=== PATIENT | male | born 1955 | race African-American/Black ===

== ENCOUNTER → 2017-11-26 11:02 | Outpatient (CLI) | payer OTHER, SELFPAY ==
[2017-11-26 11:23] VITALS: PULSE 67; PULSE 79; PULSE 80; PULSE 81; O2SAT 91; O2SAT 92; O2SAT 93; O2SAT 94; O2SAT 96
[2017-11-26] MEDS: Zolpidem Tartrate 5 MG Tablet PO (21:25)
--- NOTE | 2017-11-27 07:03 | WT_ITS ---
PSN 6 Minute Walk Test - 6 Minute Walk Test 6 Minute Walk Test: 6 Minute Walk Test PSN:6-Minute Walk Test Start: 11/26/17 11: 23 Freq: Status: Active Protocol: [id number] Document 11/26/17 11:23 RUT (Rec: 11/26/17 11:25 RUT [id number]) 6 Minute Walk Test Date Performed 11/26/17 Time Performed 11:10 Height 5 ft 8 in Weight: 75.75 kg Weight in Pounds 167.[address]: Anthony Quinn Assistive device used: None Pre-test Oxygen Delivery Method Room Air Pulse Ox (%) 96 Pulse Rate (60-100 beats/min) 67 Dyspnea López Scale (0-10) 0 Exertion López Scale (6-20) 6 1st minute Oxygen Delivery Method Room Air Pulse Ox (%) 93 Pulse Rate (60-100 beats/min) 79 2nd minute Oxygen Delivery Method Room Air Pulse Ox (%) 92 Pulse Rate (60-100 beats/min) 79 3rd minute Oxygen Delivery Method Room Air Pulse Ox (%) 91 Pulse Rate (60-100 beats/min) 81 4th minute Oxygen Delivery Method Room Air Pulse Ox (%) 91 Pulse Rate (60-100 beats/min) 80 5th minute Oxygen Delivery Method Room Air Pulse Ox (%) 93 Pulse Rate (60-100 beats/min) 80 6th minute Oxygen Delivery Method Room Air Pulse Ox (%) 92 Pulse Rate (60-100 beats/min) 80 Dyspnea López Scale (0-10) 2 Exertion López Scale (6-20) 12 Post-test Oxygen Delivery Method Room Air Pulse Ox (%) 94 Pulse Rate (60-100 beats/min) 67 Full Laps Walked 16 Partial Lap, Number of Tiles Walked 62 Total Distance Walked (ft) 1006 - Interpretation Interpretation: The patient was able to ambulate 1006 feet over the course of 6 minutes on room air with no assistive devices or breaks. The patient did experience significant desaturation from a baseline of 96% to as low as 91% with ambulation. No significant tachycardia was noted. These findings are consistent with a respiratory limitation exercise tolerance. - Recommendations Recommendations: No supplemental oxygen is indicated at this time. However, patient will need to be followed closely given level of desaturation.
== END ==
LOC: PSN 11:02
PROVIDERS: Family Provider Physician Assistant; PCP Physician Assistant; Visit Provider Nurse Practitioner Acute Care
DX: G47.33 Obstructive sleep apnea (adult) (pediatric) (principal); R06.02 Shortness of breath
CPT/HCPCS: 94618; 95810

== ENCOUNTER → 2017-12-21 13:24 | Outpatient (CLI) | payer OTHER, SELFPAY ==
--- NOTE | 2017-12-22 05:39 | PFTCOMP ---
COMPLETE PULMONARY FUNCTION TEST INTERPRETATION Brief HPI: Patient is a 62 year old Black male, currently under the care of Dr. Quinn, who presents to [facility] for complete pulmonary function tests secondary to diagnosis of dyspnea. Respiratory therapist reports good effort and reproducible results. Interpretation: Forced expiration spirometry shows a very severe large airways obstructive ventilatory defect with an FEV1 of 34% predicted. There is no significant bronchodilator response by ATS criteria. Spirograms are of good quality and plateau slowly, indicating slowly emptying areas of the lungs. The respiratory flow volume loop shows decreased expiratory flow rates at all lung volumes consistent with airway obstruction. Lung volumes by body plethysmography show a normal total lung capacity at 6.45 L, 104% predicted. FRC and RV are elevated out of proportion. Lung volume measurements are consistent with air-trapping. Diffusion capacity by carbon monoxide is decreased at 28% predicted. The airway resistance is elevated. Compared to previous pulmonary function tests from 04/04/2012, there has been a significant improvement in spirometric findings. Impression: Irreversible very severe large airways obstructive ventilatory defect with a symmetric reduction diffusing capacity, resulting in air trapping and consistent with a diagnosis of advanced COPD. There has been some improvement in flows compared to 2011.
--- NOTE | 2017-12-22 05:42 | PFTCOMP_ITS ---
COMPLETE PULMONARY FUNCTION TEST INTERPRETATION Brief HPI: Patient is a 62 year old Black male, currently under the care of Dr. Quinn, who presents to [facility] for complete pulmonary function tests secondary to diagnosis of dyspnea. Respiratory therapist reports good effort and reproducible results. Interpretation: Forced expiration spirometry shows a very severe large airways obstructive ventilatory defect with an FEV1 of 34% predicted. There is no significant bronchodilator response by ATS criteria. Spirograms are of good quality and plateau slowly, indicating slowly emptying areas of the lungs. The respiratory flow volume loop shows decreased expiratory flow rates at all lung volumes consistent with airway obstruction. Lung volumes by body plethysmography show a normal total lung capacity at 6.45 L , 104% predicted. FRC and RV are elevated out of proportion. Lung volume measurements are consistent with air-trapping. Diffusion capacity by carbon monoxide is decreased at 28% predicted. The airway resistance is elevated. Compared to previous pulmonary function tests from 04/04/2012, there has been a significant improvement in spirometric findings. Impression: Irreversible very severe large airways obstructive ventilatory defect with a symmetric reduction diffusing capacity, resulting in air trapping and consistent with a diagnosis of advanced COPD. There has been some improvement in flows compared to 2011.
== END ==
LOC: PSN 13:25
PROVIDERS: Family Provider Physician Assistant; PCP Physician Assistant; Visit Provider Nurse Practitioner Acute Care
DX: R06.02 Shortness of breath (principal)
CPT/HCPCS: 94060; 94726; 94729

== ENCOUNTER → 2017-12-24 20:00 | Outpatient (CLI) | payer OTHER, SELFPAY ==
[2017-12-24] MEDS: Zolpidem Tartrate 5 MG Tablet PO (21:30)
== END ==
PROVIDERS: Family Provider Physician Assistant; PCP Physician Assistant; Visit Provider Nurse Practitioner Acute Care
DX: G47.33 Obstructive sleep apnea (adult) (pediatric) (principal)
CPT/HCPCS: 95811

== ENCOUNTER 2018-08-24 20:43 | Observation (INO) | payer BC, SELFPAY ==
[2018-08-24 21:04] VITALS: PULSE 60
[2018-08-24 21:15] VITALS: BP 114/84; PULSE 61; RESP 16; TEMP 36.7; O2SAT 96
[2018-08-24 21:22] VITALS: BMI 24.7
[2018-08-24 21:27] VITALS: BMI 24.7
--- NOTE | 2018-08-24 21:56 | PCM.HP.STD ---
Problem List (1) Pure hypercholesterolemia Status: Chronic (2) Essential (primary) hypertension Status: Chronic (3) Atherosclerosis of [place] coronary artery of [place] heart without angina pectoris Status: Chronic Comment: IVUS-PTCA/ESTEPHANIA to LAD 12/22/15 (4) Stage 4 very severe COPD by GOLD classification Status: Chronic Comment: FEV1 32% of predicted (5) SANDRA (obstructive sleep apnea) Status: Chronic Comment: Nasal CPAP 15 cm water History of Present Illness Date of Admission: 08/24/18 Chief Complaint: Chest pain. The patient is a 62 year old M with past medical history as mentioned above directly admitted from outside facility for atypical chest pain for evaluation. Patient symptoms started around 7 days ago with intermittent chest pain, started on the back of the left side of his chest, sharp shooting pain, intermittent, 5 out of 10 in severity, comes on all of a sudden, has been going on for 7 days, aggravated by exposure to cold weather, associated with mild shortness of breath and without relieving factors. He mentioned that he went to the hospital today because his chest has been getting more severe and more prolonged. He denied associated nausea, vomiting, sweating, dizziness or lightheadedness. He denied cough or sputum production. He denies fever or chills. At this time, his vital signs are stable. His routine blood work from the outside facility reviewed and was unremarkable. His EKG revealed sinus bradycardia, heart rate has been around 58, no acute ischemic changes. His d-dimer was normal. Troponin was negative. He is being admitted for atypical chest pain for evaluation. Past Medical History Past Medical History (Chronic Problems): Chronic Problems (Last Updated 05/25/18 @ 08:13 by Kevin Alvarez NP-C) Pure hypercholesterolemia (Chronic) Essential (primary) hypertension (Chronic) Atherosclerosis of [place] coronary artery of [place] heart without angina pectoris (Chronic) IVUS-PTCA/ESTEPHANIA to LAD 12/22/15 Stage 4 very severe COPD by GOLD classification (Chronic) FEV1 32% of predicted SANDRA (obstructive sleep apnea) (Chronic) Nasal CPAP [address] elevation (STEMI) myocardial infarction involving left anterior descending coronary artery (Chronic) Long-term current use of high risk medication other than anticoagulant (Chronic) Stented coronary artery (Chronic ~12/22/15) IVUS-PTCA/ESTEPHANIA to LAD 12/22/15 Continuous tobacco abuse (Chronic) BMI 25.0-25.9,adult (Chronic) Medical History: Medical History (Last Updated 05/25/18 @ 08:13 by BRE SweeneyC) Pure hypercholesterolemia (Chronic) E78.00 Essential (primary) hypertension (Chronic) I10 Atherosclerosis of [place] coronary artery of [place] heart without angina pectoris (Chronic) I25.10 IVUS-PTCA/ESTEPHANIA to LAD 12/22/15 Stage 4 very severe COPD by GOLD classification (Chronic) J44.9 FEV1 32% of predicted SANDRA (obstructive sleep apnea) (Chronic) G47.33 Nasal CPAP [address] elevation (STEMI) myocardial infarction involving left anterior descending coronary artery (Chronic) I21.02 BMI 25.0-25.9,adult (Chronic) Z68.25 Allergies ceftriaxone sodium [From Rocephin] Adverse Reaction (Severe, Verified 05/25/18 08:24) Other Home Medications: Ambulatory Orders Medication Instructions Recorded Acetaminophen [Tylenol] 650 mg PO Q6H PRN PRN 01/29/16 albuterol sulfate HFA 90 2 puff INHALATION Q4H PRN #18 g 08/02/17 mcg/actuation aerosol inhaler clopidogrel 75 mg tablet 75 mg PO DAILY #90 tab 09/16/17 lisinopril 20 1 tab PO DAILY #90 tab 09/16/17 mg-hydrochlorothiazide 25 mg tablet metoprolol succinate ER 50 mg 50 mg PO DAILY #90 tab 09/16/17 tablet,extended release 24 hr aspirin 81 mg chewable tablet 81 mg PO DAILY@0800 #90 tab 09/27/17 fluticasone 100 mcg-umeclid 62.5 1 inh INHALATION QDAY #1 device 02/09/18 mcg-vilant 25 mcg powd for inhalation amlodipine 5 mg tablet 5 mg PO DAILY #90 tab 04/11/18 atorvastatin 80 mg tablet 80 mg PO QHS #90 tab 04/11/18 nitroglycerin 0.4 mg sublingual 0.4 mg SUBLINGUAL Q5M PRN #25 tab 05/25/18 tablet Nicotine [Nicoderm Cq] 1 patch TRANSDERMAL ONCE PRN 08/24/18 Surgical History: Surgical History (Last Updated 08/24/18 @ 21:54 by Zuleika Salas MD) Stented coronary artery (Chronic) Onset Date: ~12/22/15 Z95.5 IVUS-PTCA/ESTEPHANIA to LAD 12/22/15 Surgical History: - - PCI, cardiac stents. Psychiatric History: No pertinent psych hx Lives: Spouse/ Significant Other Smoking Status: Light Smoker (<10/day) Tobacco Use: Cigarettes Alcohol: None Drugs: None - *Family History Maternal Family History: Family History (Last Reviewed 05/25/18 @ 08:25 by Jelena Rodríguez) Father Diabetes Mother Diabetes History Items: No pertinent history Paternal Family History: Family History (Last Reviewed 05/25/18 @ 08:25 by Jelena Rodríguez) Father Diabetes Mother Diabetes History Items: Hypertension Sibling Family History: Family History (Last Reviewed 05/25/18 @ 08:25 by Jelena Rodríguez) Father Diabetes Mother Diabetes History Items: Hypertension Review of Systems Constitutional: Denies: Anorexia, Chills, Fever, Weakness Eyes: Denies: Blurred vision, Double vision, Drainage, Redness HEENT: Denies: Difficulty Hearing, Ear Pain, Eye Pain, Nasal Congestion, Sore Throat Cardiovascular: Reports: Chest Pain. Denies: Chest Pressure, Edema, Heaviness, Palpitations, Syncope Respiratory: Reports: Pleuritic Pain, Shortness of Breath. Denies: Cough, Hemoptysis, Sputum production, Wheezing Gastrointestinal: Denies: Abdominal Pain, Constipation, Diarrhea, Nausea, Vomiting Genitourinary: Denies: Dysuria, Frequency, Hematuria Musculoskeletal: Denies: Arm Pain, Back Pain, Foot Pain Skin: Denies: Dryness, Rash Neurological: Denies: Balance problems, Double vision, Change in Speech, Slurred speech, Confusion, Headaches, Incoordination, Numbness Psychiatric: Denies: Anxiety, Depression Endocrine: Denies: Change in Body Habitus, Polydipsia VTE Information - Inpt Only VTE Present on Admission: No VTE Mechan Device Prophylaxis: None VTE Pharm Prophylaxis ordered?: Yes - Physical Exam General: Alert, Oriented x3, Cooperative, No apparent distress HEENT: Atraumatic, PERRLA, EOMI, Normocephalic Oral: Moist Mucosa, No Gingival or Mucosal Lesions/ Ulcerations Neck: Supple, No JVD, Negative Carotid Bruits, Trachea Midline, Thyroid Normal Size and Texture Lungs: Clear to auscultation, No rhonchi, No wheeze, No rales, Diminished Cardiovascular: Regular rate, Regular Rhythm, Normal S1, Normal S2, No murmurs, PMI Normal Abdomen: Bowel Sounds Present, Soft, Non Tender, Non-Distended, No Hepato-splenomegaly Extremities: No clubbing, No cyanosis, No edema Skin: No rashes, No breakdown Lymphatic: No Cervical, Supraclavicular, or Inguinal Adenopathy Neurological: Cranial nerves II-XII grossly intact, Motor Exam 5/5 strength throughout Psych/Mental Status: Normal Affect, Appropriate, Alert and oriented to time, place, person, mood and affect Vital Signs Temp Pulse Resp BP Pulse Ox 98.0 F 61 16 114/84 H 96 08/24/18 21:15 08/24/18 21:15 08/24/18 21:15 08/24/18 21:15 08/24/18 21:15 Oxygen Delivery Method Room Air Weight: 162 lb 7.691 oz Body Mass Index (BMI) 24.7 Laboratory Tests Past 24 Hrs 08/24/18 21:50 Troponin I Pending Laboratory data: Blood work from the outside facility reviewed as below. CBC: Hemoglobin 15.1, WBC 7.2, platelet count 291,000. BMP: Sodium 141, potassium 3.8, chloride 104, CO2 30, BUN 20, creatinine 1.25, glucose 95. Troponin less than 0.02. BNP 45. D-dimer 206 (0-230). EKG revealed sinus bradycardia, heart rate has been in the high 50s, no acute ischemic changes or cardiac arrhythmias. Assessment/Plan This is a 63 years old male patient directly admitted from outside facility for atypical chest pain for evaluation. #1 atypical chest pain: The pain has been going on for almost 1 week, starts on the left lateral chest, associated with shortness of breath, intermittent. EKG revealed sinus bradycardia without evidence of acute ischemic changes. Troponin is negative. Patient had cardiac catheterization on February, that revealed angiographically normal left main coronary artery, patent stent to mid LAD, moderate luminal irregularities of the distal LAD, angiographically normal left circumflex and RCA. Plan: Admit to PCU for observation, cardiac monitoring, serial cardiac enzymes, repeat EKG tomorrow morning, repeat CBC and BMP,, will do chest x-ray, nuclear stress test tomorrow morning if cardiac enzymes are negative. #2 CAD status post stents: Stable, cardiac catheterization on February, reviewed as above. Plan as above, continue aspirin, statins, Plavix, lisinopril and metoprolol. #3 hypertension: Blood pressure stable, continue Norvasc, metoprolol and lisinopril as well as HCTZ. #4 hyperlipidemia: Continue statins. #5 COPD: Clinically stable, pulse ox is maintained on room air. Start DuoNeb every 6 hours, albuterol as needed. #6 DVT prophylaxis: Subcu Lovenox. This note was generated with [employer] dictation software. It may contain incorrect words, spelling, and punctuation that were not noted in checking the note before signing. Code Visit OBSV E&M: 26383 Initial observation care L3
--- NOTE | 2018-08-24 22:30 | RAD_ITS ---
STUDY: X-RAY CHEST REASON FOR EXAM: Male, 62 years old. Chest pain TECHNIQUE: PA and lateral views of the chest. COMPARISON: 03/09/2017 FINDINGS: There are superimposed monitor leads. There is hyperinflation of the lungs consistent with chronic obstructive lung disease (COPD). Stable tethering of the diaphragm right lateral base. There is no demonstrated pleural abnormality. Normal size heart. Normal mediastinum and nadia. Normal visualized pulmonary arteries. Normal visualized aortic arch and descending thoracic aorta. Normal visualized thoracic spine. Normal visualized ribs, clavicles, and shoulders. There is no demonstrated abnormality of the visualized soft tissue structures of the upper abdomen. RAD/Chest PA and Lateral IMPRESSION: Stable COPD and scarring along the right diaphragm. No pulmonary edema, congestive heart failure or confluent pneumonia. Electronically Signed: Marian Ferreira MD at 23:07 EST , Service support ,
[2018-08-24 22:59] VITALS: PULSE 61
[2018-08-24] MEDS: 0.9% Normal Saline 1,000 ML 75 ML IV (23:30)
[2018-08-24] MEDS: 0.9% NaCl Peripheral Flush Adult/Peds IV (23:32)
[2018-08-24] MEDS: Clopidogrel Bisulfate 75 MG Tablet PO (23:36)
[2018-08-24] MEDS: Atorvastatin Calcium 80 MG Tablet PO (23:36)
[2018-08-24] MEDS: Lisinopril 20 MG Tablet PO (23:37)
[2018-08-24] MEDS: hydroCHLOROthiazide 25 MG Tablet PO (23:37)
[2018-08-24 23:38] VITALS: BP 107/77; PULSE 61
[2018-08-24] MEDS: Metoprolol(XL)Succ 50 MG Tablet PO (23:38)
[2018-08-24] MEDS: amLODIPine 5 MG Tablet PO (23:38)
[2018-08-24 23:40] VITALS: BP 107/77; PULSE 62; RESP 16; TEMP 36.9; O2SAT 95
[2018-08-25] VITALS (8 sets, daily range): BP systolic 97–114; BP diastolic 64–71; PULSE 53–71; RESP 16–19; TEMP 36.4–36.5; O2SAT 93–96
[2018-08-25 03:59] LABS: Hematocrit 42.6 % (40-54); Hemoglobin 14.6 g/dl (13.0-16.5); Mean Corp Hgb Conc 34.3 g/gl (32-36); Mean Corpuscular Hgb 30.2 pg (27.0-32.0); Mean Corpuscular Volume 88.2 fL (80-94); Mean Platelet Vol. 9.1 fl (6.2-12.0); Platelet Count 299 K/mm3 (150-450); RBC Distribution Width CV 12.8 % (11.6-14.6); RBC Distribution Width SD 40.7 fl (35.1-43.9); Red Blood Count 4.83 M/mm3 (4.6-6.2); White Blood Count 6.1 K/mm3 (4.4-11.0)
[2018-08-25 04:00] LABS: Scan Indicated on CBC? Y/N NO
[2018-08-25 04:03] LABS: International Normalized Ratio 1.1; Prothrombin Time (Protime)PT. 13.7 SECONDS (11.7-14.9)
[2018-08-25 04:04] LABS: Partial Thromboplast Time 26.7 Seconds (24.1-36.2)
[2018-08-25 04:37] LABS: Anion Gap 10 (5-15); BUN 18 mg/dL (7-18); BUN/Creat Ratio 17.5 RATIO (10-20); Calcium,Total 8.4 mg/dL (8.5-10.1); Chloride 105 mmol/L (98-107); Creatinine, Serum 1.03 mg/dL (0.70-1.30); EST Glomerular Filtration Rate 78 mL/min (>60); Est Glom Filt Rate - Afr Amer 94 mL/min (>60); Estimated Creatinine Clearance 73.79 ml/min; Glucose 101 mg/dL (74-106); Potassium 3.6 mmol/L (3.5-5.1); Sodium Level 142 mmol/L (136-145)
[2018-08-25] MEDS: Aspirin 81 MG TAB.CHEW PO (05:05)
--- NOTE | 2018-08-25 05:55 | EKG12_ITS ---
Test Reason : AM Blood Pressure : / mmHG Vent. Rate : 062 BPM Atrial Rate : 062 BPM P-R Int : 138 ms QRS Dur : 084 ms QT Int : 426 ms P-R-T Axes : 088 -36 063 degrees QTc Int : 432 ms Normal sinus rhythm Left axis deviation Abnormal ECG When compared with ECG of 24-AUG-2018 21:05, MANUAL COMPARISON REQUIRED, DATA IS UNCONFIRMED Confirmed by DONNA CHOWDARY, BRIAN ([id number]), video news editor ORI MAE ([id number]) on 08/30/2018 9:02:24 AM Referred By: Confirmed By:BRIAN THOMPSON MD
[2018-08-25] MEDS: 0.9% NaCl Peripheral Flush Adult/Peds IV (11:27)
--- NOTE | 2018-08-25 13:46 | STRESSREP_ITS ---
Stress Test Report Date: 08/25/2018 Procedure: Pharmacologic stress nuclear imaging study Indications: CAD; status post MD; status post PCI Consent: Per the patient Procedure: The patient underwent pharmacologic (regadenoson) evaluation with a peak heart rate of 93 beats per minute (58% predicted maximal heart rate) with a peak blood pressure 130/90 mmHg. The baseline ECG demonstrated sinus bradycardia. The peak pharmacological ECG demonstrated no obvious ECG changes. There were no obvious cardiac dysrhythmias pretest, during pharmacologic infusion, or recovery. There was no report of chest discomfort during pharmacologic infusion or recovery. The examination was discontinued secondary to completion of protocol. Impression: 1. Pharmacologic (regadenoson) evaluation 2. Peak pharmacologic ECG with no obvious ECG changes 3. There were no obvious cardiac dysrhythmias pretest, during pharmacologic infusion, recovering 4. Nuclear images pending Myocardial perfusion imaging study: Technique: The patient was injected with 11.6 mci of technetium 99 M Cardiolite and subsequently rest SPECT Cardiolite nuclear imaging was obtained in the ho rizontal long, vertical long, and short axis views. The patient underwent pharmacologic (regadenoson) evaluation with a peak heart rate of 93 beats per minute (58% predicted maximal heart rate) with a peak blood pressure 130/90 mmHg. The patient was injected with 35.1 mci of technetium 99 M Cardiolite and subsequently stress SPECT Cardiolite nuclear imaging was obtained in the horizontal long, vertical long, and short axis views. A gated Cardiolite study at peak stress was obtained. Interpretation: Rest and stress SPECT Cardiolite nuclear imaging demonstrates the appearance of extra cardiac/gastrointestinal tracer uptake near the inferior segments. Otherwise there appears to be relative uniform tracer uptake and myocardial perfusion appearing within normal limits. There is end systolic thickening and brightening. The gated Cardiolite study demonstrates myocardial thickening and normal motion. The reported LVEF is 72%. Impression 1. Rest and stress SPECT Cardiolite nuclear imaging demonstrate relative uniform tracer uptake and myocardial perfusion appearing within normal limits. 2. The gated Cardiolite study reports an LVEF of 72%. This note was generated using a voice recognition system and there may be incorrect words, spelling or punctuation that were not noted when reviewing the office note prior to saving.
--- NOTE | 2018-08-25 14:16 | PCM.DC ---
You will use the following diet at home:: Cardiac Your food should be the consistency of: Regular Your liquids should be the consistency of: Regular/Thin Discharge Activity: Return to Normal Activity, - - Avoid exposure to any strong smells such as bleach, cleaning products, strong colognes or perfumes, paint fumes and smoke of any kind. Avoid sudden exposure to cold air because this can cause bronchospasm. You may want to cover your mouth when you go outside in the winter. Avoid exposure to anyone who is sick with a cough or sore throat. May resume sexual activity in: No Restrictions Call your doctor if you observe: Fever of 101 or Higher, Shortness of breath, Dizziness, Fainting spells, Swelling in the ankles, Uncontrolled pain Instructions: Your Body's Response to Anxiety, Understanding Panic Disorder (Panic Attack), Treating Anxiety Disorders with Therapy, Coping with Shortness of Breath: Controlling Stress, Chronic Lung Disease: Tips for Quitting Smoking, Why Do You Smoke?, Planning to Quit Smoking, Getting Support for Quitting Smoking Additional Instructions: 1. The stress test was negative.....this means that there is no changes on the films that would be consistent with cardiac disease. The heart squeezes well. Chest pain can also be associated with COPD, reflux, muscle spasm, musculoskeletal problems. I suggest possibly seeing a chiropracter for an adjustment or getting a massage or asking your PCP for a referral to physical therapy. Patients with severe chronic lung disease also get very anxious at times because they can't catch there breath and this is terrifying and can lead to muscles spasms and chest pain.......you can have a panic attack. You have severe lung disease and this greatly impacts your ability to walk and exert yourself. It is likely going to continue to get worse because you are still smoking. There is a smoking cessation program here at the hospital that is run by the respiratory therapists and all you need to do is call the hospital wooling machine operator and ask to be put through to the smoking cessation professional programmer analyst. When you are anxious and/or depressed it can be VERY difficult to quit any addiction.......I would discuss this with your PCP and ask ifd there is some medication that would help you. Allergies/Adverse Reactions: Allergies ceftriaxone sodium [From Rocephin] Adverse Reaction (Severe, Verified 05/25/18 08:24) Other Medications to take at Discharge Acetaminophen [Tylenol Tablet] 650 mg PO Q6H PRN PRN 01/29/16 albuterol sulfate HFA 90 mcg/actuation aerosol inhaler 2 puff INHALATION Q4H PRN #18 g 08/02/17 clopidogrel 75 mg tablet 75 mg PO DAILY #90 tab 09/16/17 lisinopril 20 mg-hydrochlorothiazide 25 mg tablet 1 tab PO DAILY #90 tab 09/16/17 metoprolol succinate ER 50 mg tablet,extended release 24 hr 50 mg PO DAILY #90 tab 09/16/17 aspirin 81 mg chewable tablet 81 mg PO DAILY@0800 #90 tab 09/27/17 fluticasone 100 mcg-umeclid 62.5 mcg-vilant 25 mcg powd for inhalation 1 inh INHALATION QDAY #1 device 02/09/18 amlodipine 5 mg tablet 5 mg PO DAILY #90 tab 04/11/18 atorvastatin 80 mg tablet 80 mg PO QHS #90 tab 04/11/18 nitroglycerin 0.4 mg sublingual tablet 0.4 mg SUBLINGUAL Q5M PRN #25 tab 05/25/18 Nicotine [Nicoderm Cq] 1 patch TRANSDERMAL ONCE PRN 08/24/18 Albuterol Aerosols [Ventolin Aerosols] 2.5 mg INHALATION Q4H PRN PRN #120 vial 08/25/18 The following prescriptions were given: Albuterol Aerosols [Ventolin Aerosols] 2.5 mg INHALATION Q4H PRN PRN #120 vial PRN Reason: wheezing/shortness of breath Primary Care Physician: Jon Bernal PA [Primary Care Provider] - Test Results: Test results from this visit will be discussed in further detail at your follow-up appointment, if applicable. Please Follow Up With: Johnny Acosta MD - or Dr. Quinn When: 2 weeks has an appt in August Please Follow Up With: Dimitris Tubbs MD When: [place] to establish care and follow up visit from the hospital Proposed Discharge Date: 08/25/18
--- NOTE | 2018-08-25 14:23 | DCINST_ITS ---
You will use the following diet at home:: Cardiac Your food should be the consistency of: Regular Your liquids should be the consistency of: Regular/Thin Discharge Activity: Return to Normal Activity, - - Avoid exposure to any strong smells such as bleach, cleaning products, strong colognes or perfumes, paint fumes and smoke of any kind. Avoid sudden exposure to cold air because this can cause bronchospasm. You may want to cover your mouth when you go outside in the winter. Avoid exposure to anyone who is sick with a cough or sore throat. May resume sexual activity in: No Restrictions Call your doctor if you observe: Fever of 101 or Higher, Shortness of breath, Dizziness, Fainting spells, Swelling in the ankles, Uncontrolled pain Instructions: Your Body's Response to Anxiety, Understanding Panic Disorder (Panic Attack), Treating Anxiety Disorders with Therapy, Coping with Shortness of Breath: Controlling Stress, Chronic Lung Disease: Tips for Quitting Smoking, Why Do You Smoke?, Planning to Quit Smoking, Getting Support for Quitting Smoking Additional Instructions: 1. The stress test was negative.....this means that there is no changes on the films that would be consistent with cardiac disease. The heart squeezes well. Chest pain can also be associated with COPD, reflux, muscle spasm, musculoskeletal problems. I suggest possibly seeing a chiropracter for an adjustment or getting a massage or asking your PCP for a referral to physical therapy. Patients with severe chronic lung disease also get very anxious at times because they can't catch there breath and this is terrifying and can lead to muscles spasms and chest pain.......you can have a panic attack. You have severe lung disease and this greatly impacts your ability to walk and exert yourself. It is likely going to continue to get worse because you are still smoking. There is a smoking cessation program here at the hospital that is run by the respiratory therapists and all you need to do is call the hospital chip crusher operator and ask to be put through to the smoking cessation program manufacturing leader. When you are anxious and/or depressed it can be VERY difficult to quit any addiction.......I would discuss this with your PCP and ask ifd there is some medication that would help you. Allergies/Adverse Reactions: Allergies ceftriaxone sodium [From Rocephin] Adverse Reaction (Severe, Verified 05/25/18 08:24) Other Medications to take at Discharge Acetaminophen [Tylenol Tablet] 650 mg PO Q6H PRN PRN 01/29/16 albuterol sulfate HFA 90 mcg/actuation aerosol inhaler 2 puff INHALATION Q4H PRN #18 g 08/02/17 clopidogrel 75 mg tablet 75 mg PO DAILY #90 tab 09/16/17 lisinopril 20 mg-hydrochlorothiazide 25 mg tablet 1 tab PO DAILY #90 tab 08/27 09/12 metoprolol succinate ER 50 mg tablet,extended release 24 hr 50 mg PO DAILY #90 tab 09/16/17 aspirin 81 mg chewable tablet 81 mg PO DAILY@0800 #90 tab 09/27/17 fluticasone 100 mcg-umeclid 62.5 mcg-vilant 25 mcg powd for inhalation 1 inh INHALATION QDAY #1 device 02/09/18 amlodipine 5 mg tablet 5 mg PO DAILY #90 tab 04/11/18 atorvastatin 80 mg tablet 80 mg PO QHS #90 tab 04/11/18 nitroglycerin 0.4 mg sublingual tablet 0.4 mg SUBLINGUAL Q5M PRN #25 tab 05/25/18 Nicotine [Nicoderm Cq] 1 patch TRANSDERMAL ONCE PRN 08/24/18 Albuterol Aerosols [Ventolin Aerosols] 2.5 mg INHALATION Q4H PRN PRN #120 vial 08/25/18 The following prescriptions were given: Albuterol Aerosols [Ventolin Aerosols] 2.5 mg INHALATION Q4H PRN PRN #120 vial PRN Reason: wheezing/shortness of breath Primary Care Physician: Jon Bernal PA [Primary Care Provider] - Test Results: Test results from this visit will be discussed in further detail at your follow- up appointment, if applicable. Please Follow Up With: Johnny Acosta MD - or Dr. Quinn When: 2 weeks has an appt in August Please Follow Up With: Dimitris Tubbs MD When: BOLIVAR to establish care and follow up visit from the hospital Proposed Discharge Date: 08/25/18
--- NOTE | 2018-08-25 15:20 | DS.PCM_ITS ---
Discharge Date and Diagnosis Date of Admission: 08/24/18 Date of Discharge: 08/25/18 - Primary Discharge Diagnosis Chest pain associated with ALVES - suspect secondary to severe COPD - Secondary Discharge Diagnosis Chronic Problems (Last Updated 05/25/18 @ 08:13 by Kevin Alvarez NP-C) Pure hypercholesterolemia (Chronic) Essential (primary) hypertension (Chronic) Atherosclerosis of [place] coronary artery of [place] heart without angina pectoris (Chronic) IVUS-PTCA/ESTEPHANIA to LAD 12/22/15 Stage 4 very severe COPD by GOLD classification (Chronic) FEV1 32% of predicted SANDRA (obstructive sleep apnea) (Chronic) Nasal CPAP [address] elevation (STEMI) myocardial infarction involving left anterior descending coronary artery (Chronic) Long-term current use of high risk medication other than anticoagulant (Chronic) Stented coronary artery (Chronic ~12/22/15) IVUS-PTCA/ESTEPHANIA to LAD 12/22/15 Continuous tobacco abuse (Chronic) BMI 25.0-25.9,adult (Chronic) Hospital Course and Treatment Imaging Results: Clinical Impression(s) from Imaging Studies Chest X-Ray 08/24/18 22:30 IMPRESSION: Stable COPD and scarring along the right diaphragm. No pulmonary edema, congestive heart failure or confluent pneumonia. Electronically Signed: Marian Ferreira MD at 23:07 EST , Service support , none Operations: None Procedures: Stress test - Impression 1. Rest and stress SPECT Cardiolite nuclear imaging demonstrate relative uniform tracer uptake and myocardial perfusion appearing within normal limits. 2. The gated Cardiolite study reports an LVEF of 72%. Summary of Care Provided: The patient is a 62 year old M with a past medical history of stage IV severe COPD, obstructive sleep apnea on CPAP, coronary artery disease, hypertension and hyperlipidemia who presented to the emergency department at [facility] on 08/24/2018 from an outside facility complaining of intermittent left side chest pain for the preceding 7 days. 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 and the pain was precipitated by working outside in this extreme cold and lifting/moving heavy objects. He admitted to increased SOB and wheezing with the pain. The pain was sharp and stabbing, He does not have oxygen at home. He has had a 6 minute walk with Pulmonary medicine and does not qualify for oxygen. Troponin at admission was WNL and a CXR showed no infiltrates, pleural effusions or pulmonary vascular congestion. Vital signs at presentation were temp 98, pulse rate 61, blood pressure 114/84, respiratory rate 16 and he was 96% saturated on room air at rest. He was admitted to a monitored bed on PCU and had no significant cardiac dysrhythmia. Serial troponins were negative and a stress test was done on 08/25/2018 and demonstrated relative uniform tracer uptake in myocardial perfusion appearing to be within normal limits. The gated Cardiolite study reported left ventricular ejection fraction of 72%. He was discharged home and will follow up with PCP and pulmonary as an OP. General: Alert, oriented ?3, cooperative, pleasant and appropriate Neck: Supple, trachea midline, no enlarged cervical nodes, no enlarged supraclavicular nodes Lungs: Clear to auscultation, no wheezes, no rales, fair air exchange, symmetric chest expansion, not tachypneic, no conversational dyspnea, no accessory muscle use Heart: Regular rate and rhythm, normal S1, normal S2, no murmur, no gallop, no rub Abdomen: Soft, NT, ND, bowel sounds present Extremities: No clubbing, no peripheral edema, no cyanosis This note was generated with Boxever dictation software. It may contain incorrect words, spelling, and punctuation that were not noted in checking the note before signing. - Physical Exam Vital Signs Temp Pulse Resp BP Pulse Ox 97.6 F L 60 17 108/71 95 08/25/18 14:13 08/25/18 14:13 08/25/18 14:13 08/25/18 14:13 08/25/18 14:13 Oxygen Delivery Method Room Air Weight: 162 lb 7.691 oz Body Mass Index (BMI) 24.7 Intake and Output for Last 24 Hours 08/23/18 08/24/18 08/25/18 23:59 23:59 23:59 Intake Total 240 / 240 711 / 711 Output Total 250 / 250 1125 / 1125 Balance -10 / -10 -414 / -414 Laboratory Tests Past 24 Hrs 08/24/18 08/25/18 08/25/18 21:50 00:08 03:44 WBC 6.1 RBC 4.83 Hgb 14.6 Hct 42.6 MCV 88.2 MCH 30.2 MCHC 34.3 RDW 12.8 RDW Differential 40.7 Plt Count 299 MPV 9.1 PT INR APTT Sodium Potassium Chloride Carbon Dioxide Anion Gap BUN Creatinine Estim Creat Clear Calc Est GFR (MDRD) Af Amer Est GFR (MDRD) Non-Af BUN/Creatinine Ratio Glucose Calcium Troponin I < 0.015 < 0.015 08/25/18 08/25/18 08/25/18 03:44 03:44 03:44 WBC RBC Hgb Hct MCV MCH MCHC RDW RDW Differential Plt Count MPV PT 13.7 INR 1.1 APTT 26.7 Sodium 142 Potassium 3.6 Chloride 105 Carbon Dioxide 27.0 Anion Gap 10 BUN 18 Creatinine 1.03 Estim Creat Clear Calc 73.79 Est GFR (MDRD) Af Amer 94 Est GFR (MDRD) Non-Af 78 BUN/Creatinine Ratio 17.5 Glucose 101 Calcium 8.4 L Troponin I < 0.015 Discharge Activity: Return to Normal Activity, - - Avoid exposure to any strong smells such as bleach, cleaning products, strong colognes or perfumes, paint fumes and smoke of any kind. Avoid sudden exposure to cold air because this can cause bronchospasm. You may want to cover your mouth when you go outside in the winter. Avoid exposure to anyone who is sick with a cough or sore throat. May resume sexual activity in: No Restrictions Call your doctor if you observe: Fever of 101 or Higher, Shortness of breath, Dizziness, Fainting spells, Swelling in the ankles, Uncontrolled pain Home Medications: Medications to take at Discharge Acetaminophen [Tylenol Tablet] 650 mg PO Q6H PRN PRN 01/29/16 albuterol sulfate HFA 90 mcg/actuation aerosol inhaler 2 puff INHALATION Q4H PRN #18 g 08/02/17 clopidogrel 75 mg tablet 75 mg PO DAILY #90 tab 09/16/17 lisinopril 20 mg-hydrochlorothiazide 25 mg tablet 1 tab PO DAILY #90 tab 09/16/17 metoprolol succinate ER 50 mg tablet,extended release 24 hr 50 mg PO DAILY #90 tab 09/16/17 aspirin 81 mg chewable tablet 81 mg PO DAILY@0800 #90 tab 09/27/17 fluticasone 100 mcg-umeclid 62.5 mcg-vilant 25 mcg powd for inhalation 1 inh INHALATION QDAY #1 device 02/09/18 amlodipine 5 mg tablet 5 mg PO DAILY #90 tab 04/11/18 atorvastatin 80 mg tablet 80 mg PO QHS #90 tab 04/11/18 nitroglycerin 0.4 mg sublingual tablet 0.4 mg SUBLINGUAL Q5M PRN #25 tab 05/25/18 Nicotine [Nicoderm Cq] 1 patch TRANSDERMAL ONCE PRN 08/24/18 Albuterol Aerosols [Ventolin Aerosols] 2.5 mg INHALATION Q4H PRN PRN #120 vial 08/25/18 Following Prescrptions Were Given to Patient: Albuterol Aerosols [Ventolin Aerosols] 2.5 mg INHALATION Q4H PRN PRN #120 vial PRN Reason: wheezing/shortness of breath Primary Care Physician: Jon Bernal PA [Primary Care Provider] - Please follow up with your Primary Care Physician in: 1 week Please Follow Up With: Johnny Acosta MD - or Dr. Quinn When: 2 weeks has an appt in August Please Follow Up With: Dimitris Tubbs MD When: BOLIVAR to establish care and follow up visit from the hospital Patient Instructions: Your Body's Response to Anxiety, Chronic Lung Disease: Tips for Quitting Smoking, Understanding Panic Disorder (Panic Attack), Treating Anxiety Disorders with Therapy, Coping with Shortness of Breath: Controlling Stress, Why Do You Smoke?, Planning to Quit Smoking, Getting Support for Quitting Smoking Minutes spent on discharge:: 30 Patient Condition:: Good Medical Necessity - Tobacco Use Smoking Status: Current every day smoker - down to 2 cigarettes a day Tobacco Use: Cigarettes Meaningful Use Info Meaningful Use Diagnoses (Choose all that apply): None applicable Code Visit OBSV E&M: 07871 Observation care discharge
== END 2018-08-25 14:24 | disposition home or self-care (01) ==
PROVIDERS: Hospitalist; Admitting Provider Internal Medicine; Family Provider Physician Assistant; PCP Physician Assistant; Visit Provider Internal Medicine
DX: R07.89 Other chest pain (principal); G47.33 Obstructive sleep apnea (adult) (pediatric); I25.10 Atherosclerotic heart disease of native coronary artery without angina pectoris; J44.9 Chronic obstructive pulmonary disease, unspecified; I10 Essential (primary) hypertension; I25.2 Old myocardial infarction; Z79.899 Other long term (current) drug therapy; Z79.82 Long term (current) use of aspirin; Z79.51 Long term (current) use of inhaled steroids; Z79.02 Long term (current) use of antithrombotics/antiplatelets; F17.210 Nicotine dependence, cigarettes, uncomplicated; E78.5 Hyperlipidemia, unspecified
CPT/HCPCS: 36415; 71046; 78452; 80048; 84484; 85027; 85610; 85730; 93005; 93017; 96360; 96361; 99218; 99406; A9500; J7030; A4216; G0378; G0379; J2785

== ENCOUNTER → 2018-11-09 | Outpatient (CLI) | payer BC, SELFPAY ==
[2018-11-09 12:13] VITALS: BMI 26.4
[2018-11-09 15:36] LABS: ALB/GLOB Ratio 1.1 RATIO (0.9-2.4); AST(SGOT) 17 U/L (15-37); Alanine Aminotransfer ALT/SGPT 33 U/L (16-61); Alkaline Phosphatase 100 U/L (45-117); Anion Gap 4 (5-15); BUN 13 mg/dL (7-18); BUN/Creat Ratio 9.5 RATIO (10-20); Calcium,Total 8.8 mg/dL (8.5-10.1); Chloride 100 mmol/L (98-107); Creatinine, Serum 1.37 mg/dL (0.70-1.30); EST Glomerular Filtration Rate 56 mL/min (>60); Est Glom Filt Rate - Afr Amer 68 mL/min (>60); Globulin 3.6 g/dL (2.2-4.2); Glucose 92 mg/dL (74-106); Potassium 3.3 mmol/L (3.5-5.1); Protein, Total 7.6 g/dL (6.4-8.2); Sodium Level 140 mmol/L (136-145)
== END | disposition home or self-care (01) ==
PROVIDERS: Family Provider Internal Medicine; PCP Internal Medicine; Referring Provider Internal Medicine; Visit Provider Internal Medicine
DX: I10 Essential (primary) hypertension (principal)
CPT/HCPCS: 36415; 80053

== ENCOUNTER → 2018-12-02 15:38 | Outpatient (CLI) | payer BC, SELFPAY ==
[2018-11-09 12:13] VITALS: BMI 26.4
--- NOTE | 2018-12-02 15:42 | CT_ITS ---
STUDY: LOW DOSE CT LUNG CANCER SCREENING REASON FOR EXAM: Male, 63 years old. 38 pack-year history. Shortness of breath. RADIATION DOSAGE (If Supplied By Facility): CTDIvol = ( 3.02 ) mGy, DLP = ( 103.82 ) mGycm TECHNIQUE: No contrast was administered. Low dose technique was utilized (average mAS-38 and kVp 120). 1.25 mm axial source images with a slice interval of 1.25-mm were reconstructed in lung windows. 2.5 mm axial source images with a slice interval of 2.5-mm were reconstructed in lung windows. 5.0 mm axial source images with a slice interval of 5.0-mm were reconstructed in soft tissue windows. Nodule measured using lung windows on PACS and/or independent workstation with automated measurement of minimum and maximum diameter. Nodule measurement reported as average diameter rounded to the nearest whole number. Growth is defined as an increase ins size of greater than 1.5 mm. COMPARISON: Chest, August 24, 2018. NODULES: Nodule #: 1 Density: Solid Lung location: Left upper lobe: Pleural-based Location in series: Series Number: 2 Image: 43 Size - D1 x D2 mm: 2 x 2 mm: 2 mm average diameter Margin: Smooth Shape: Rounded Calcification: No Fat: No Temporal comparison: None Nodule #: 2 Density: Solid Lung location: Right upper lobe: 2.7 cm from pleura Location in series: Series Number: 2 Image: 52 Size - D1 x D2 mm: 2 x 2 mm: 2 mm average diameter Margin: Smooth Shape: Rounded Calcification: Yes Fat: No Temporal comparison: None Nodule #: 3 Density: Solid Lung location: Right upper lobe: Pleural-based Location in series: Series Number: 2 Image: 91 Size - D1 x D2 mm: 4 x 2 mm: 3 mm average diameter Margin: Smooth Shape: Rounded Calcification: No Fat: No Temporal comparison: None Nodule #: 4 Density: Solid Lung location: Left upper lobe: 3.1 cm from pleura Location in series: Series Number: 2 Image: 121 Size - D1 x D2 mm: 3 x 3 mm: 3 mm average diameter Margin: Smooth Shape: Rounded Calcification: No Fat: No Temporal comparison: None Nodule #: 5 Density: Solid Lung location: Right upper lobe: 1.3 cm from pleura Location in series: Series Number: 2 Image: 131 Size - D1 x D2 mm: 2 x 2 mm: 2 mm average diameter Margin: Smooth Shape: Rounded Calcification: Yes Fat: No Temporal comparison: None Nodule #: 6 Density: Solid Lung location: Right lower lobe: Pleural-based Location in series: Series Number: 2 Image: 160 Size - D1 x D2 mm: 3 x 3 mm: 3 mm average diameter Margin: Smooth Shape: Round Calcification: No Fat: No Temporal comparison: None Total lung nodules (excluding granulomas): 5 Emphysema: There is diffuse emphysematous changes throughout the lungs with apical scarring in the bilateral upper lobes. Endobronchial lesion: No Aorta: Normal Coronary arteries: There are coronary artery calcifications. Heart: Normal Pulmonary artery: Normal Mediastinal nodes: None Other chest and abdominal findings: There are minimal degenerative changes of the thoracic spine. There is a large soft tissue mass with rim calcification in the right upper quadrant of the abdomen thought to be renal in origin. CT/Low Dose CT Lung Screening IMPRESSION: 1. Diffuse emphysematous changes. 2. Large rim calcified mass in the right upper quadrant in the abdomen. 3. Bilateral apical pleural scarring Lung-RADS category 2 - Continue annual screening with LDCT in 12 months. IMPORTANT NOTES FOR USE: ACR Lung-RADS Version 1.0 Assessment Categories Release Date: November 20, 2013 Category: Coded 0-4 bases on nodule(s) with highest degree of suspicion. Negative screen is defined as categories 1 and 2; a positive screen is defined as categories 3 and 4. Category 3 and 4A nodules that are unchanged on interval CT should be coded as category 2, and individuals returned to screening in 12 months. Category 4X: Category 3 or 4 nodules with additional imaging findings that increase the suspicion of lung cancer, such as spiculation, GGN that doubles in size in 1 year, enlarged lymph notes, etc. Category Modifiers: S (significant finding unrelated to lung cancer) and C (prior history of treated lung cancer) may be added to the 0-4 Lung-RADS Electronically Signed: Josh Henley DO at 9:16 EDT Tel [phone], Service support ,
== END ==
PROVIDERS: Family Provider Internal Medicine; PCP Internal Medicine; Referring Provider Internal Medicine Critical Care Medicine; Visit Provider Internal Medicine Critical Care Medicine
DX: F17.210 Nicotine dependence, cigarettes, uncomplicated (principal)
CPT/HCPCS: G0297

== ENCOUNTER → 2019-01-23 | Outpatient (CLI) | payer BC, SELFPAY ==
[2019-01-09 14:42] VITALS: BMI 26.3
[2019-01-23 13:43] LABS: PSA,Total - Annual Screen 0.96 ng/mL (0.00-4.00)
== END | disposition home or self-care (01) ==
LOC: LAB 12:16
PROVIDERS: Family Provider Internal Medicine; PCP Internal Medicine; Referring Provider Urology; Visit Provider Urology
DX: N28.89 Other specified disorders of kidney and ureter (principal); Z12.5 Encounter for screening for malignant neoplasm of prostate
CPT/HCPCS: 36415; 84153; G0103

== ENCOUNTER → 2019-01-24 | Outpatient (CLI) | payer BC, SELFPAY ==
[2019-01-09 14:42] VITALS: BMI 26.3
--- NOTE | 2019-01-24 13:30 | CT_ITS ---
STUDY: CT ABDOMEN AND PELVIS WITH AND WITHOUT CONTRAST REASON FOR EXAM: Male, 63 years old. Hematuria, right renal mass. RADIATION DOSAGE (If Supplied By Facility): CTDIvol = ( 12.37 ) mGy, DLP = ( 1230.55 ) mGycm TECHNIQUE: Transaxial images were obtained from the dome of the diaphragm to the symphysis pubis without oral contrast. 100 ml of Isovue 300 contrast was administered. Sagittal and coronal images were reconstructed. Imaging was obtained precontrast, portal venous, and delayed renal or 3 phase of contrast. Individualized dose optimization techniques were used for this CT. COMPARISON: CT chest 12/02/2018. FINDINGS: Body wall soft tissues: No acute process. Osseous structures: No acute process. Inferior chest: Prominent features of centrilobular emphysema the lung bases. Normal distal esophagus. Normal cardiac base. Hepatobiliary: Normal. Pancreas: Mild atrophy. Spleen: Normal. Adrenal glands: Normal. Urogenital: Normal left kidney, collecting system, ureter, urinary bladder. Mild prostatomegaly. Normal seminal vesicles. There is a complex cystic and solid mass of the right kidney, mid to superior pole, measuring up to 7.5 cm anterior-posterior, 7.2 cm transverse and 9.4 cm craniocaudal. The mass has slender rim calcifications, a few speckled septal calcifications, and contains both thin and thick septations, and mildly thickened soft tissues along portions of its margin intraluminal. There is evidence of enhancement of the soft tissue components and septa. The features are most consistent with malignancy. Partially exophytic from the right renal mid polar cortex, and additional partially complex cyst is present, measuring 3.5 cm craniocaudal, 3.5 cm transverse and 3.8 cm anterior-posterior. Minimal wall thickening with enhancement, minimal internal septa. Projecting from the posterior mid polar right kidney, partially exhibit phytic, homogeneously enhancing complex cyst. Normal right collecting system and ureter. Pelvic floor and sidewalls and retroperitoneum: No mass or adenopathy. Vasculature: Mild atherosclerosis. Stomach: No acute process. Small bowel and mesentery: No acute process. Large bowel: Normal appendix. Mild sigmoid diverticulosis without diverticulitis. Normal rectum. Free fluid or free air: None. CT/CT Abd/Pelvis W/WO Contrast IMPRESSION: There are 3 complex cysts of the right kidney, each exhibiting elements of contrast enhancement. Each must be considered suspicious for malignancy. There is no evidence of solid organ metastatic disease or lymphadenopathy or osseous metastatic disease. Mild prostatomegaly. Electronically Signed: Lemuel Yancey MD at 14:27 EDT Tel , Service support ,
[2019-01-25 14:55] LABS: CREATININE FINGERSTICK 1.11 mg/dL (0.70-1.30)
== END | disposition home or self-care (01) ==
LOC: CT 13:29
PROVIDERS: Family Provider Internal Medicine; PCP Internal Medicine; Referring Provider Urology; Visit Provider Urology
DX: R31.9 Hematuria, unspecified (principal)
CPT/HCPCS: 74178; Q9967

== ENCOUNTER → 2019-02-15 | Outpatient (CLI) | payer BC, SELFPAY ==
[2019-01-09 14:42] VITALS: BMI 26.3
--- NOTE | 2019-02-15 10:27 | MRI_ITS ---
STUDY: MRI ABDOMEN WITH AND WITHOUT CONTRAST REASON FOR EXAM: Male, 63 years old. Renal mass TECHNIQUE: Standardized fat and water weighted pulse sequences were obtained in all 3 orthogonal planes post contrast administration. 150 IV Dotarem was administered for the contrast portion of the examination. COMPARISON: CT abdomen/pelvis January 24, 2019. FINDINGS: The visualized lung bases are unremarkable. The visualized portions of the heart are within normal limits. Normal visualized liver. Normal gallbladder and extrahepatic biliary system. Normal spleen. Normal pancreas. Normal bilateral adrenal glands. There is a 6.9 x 6.8 x 7.9 cm complex heterogeneous upper renal mass in the right kidney with diffusely calcified rim. There is an enhancement of the soft tissue component in the mass. It appears mostly encapsulated. There is an additional minimally complex 3.6 cm cyst arising from the mid/lower pole of the right kidney and an adjacent 1.1 cm complex cystic focus. There is upper pole right renal simple 1 cm cyst. Normal left kidney. The stomach is within normal limits. The visualized small bowel and colon are grossly unremarkable. Normal abdominal aorta. Normal inferior vena cava. Normal retroperitoneum. Normal abdominal wall. Normal osseous structures. MRI/MRI Abd WITH and W/O Contrast IMPRESSION: Complex upper pole right renal mass concerning for an underlying neoplasm. Two complex right cysts, recommend 3-6 month follow-up. Electronically Signed: Nasra Sam MD at 19:57 EDT Tel , Service support ,
== END | disposition home or self-care (01) ==
LOC: MRI 10:07
PROVIDERS: Family Provider Internal Medicine; PCP Internal Medicine; Referring Provider Urology; Visit Provider Urology
DX: J44.9 Chronic obstructive pulmonary disease, unspecified (principal); N28.89 Other specified disorders of kidney and ureter
CPT/HCPCS: 74183; 94060; 94726; 94729; A9575

== ENCOUNTER 2019-03-17 06:13 | Inpatient (IN) | payer BC, SELFPAY ==
[2019-01-09 14:42] VITALS: BMI 26.3
[2019-03-07 09:08] VITALS: BP 120/79; PULSE 59; RESP 16; TEMP 36.3; O2SAT 97; BMI 25.7
[2019-03-07 10:02] LABS: Hematocrit 47.5 % (40-54); Hemoglobin 15.8 g/dL (13.0-16.5); Mean Corp Hgb Conc 33.3 g/dL (32-36); Mean Corpuscular Volume 90.3 fL (80-94); Mean Platelet Vol. 9.2 fl (6.2-12.0); Platelet Count 286 K/mm3 (150-450); RBC Distribution Width CV 13.1 % (11.6-14.6); RBC Distribution Width SD 43.7 fl (35.1-43.9); Red Blood Count 5.26 M/mm3 (4.6-6.2); White Blood Count 6.4 K/mm3 (4.4-11.0)
[2019-03-07 10:28] LABS: Anion Gap 6 (5-15); BUN 15 mg/dL (7-18); BUN/Creat Ratio 12.6 RATIO (10-20); Calcium,Total 8.9 mg/dL (8.5-10.1); Chloride 103 mmol/L (98-107); Creatinine, Serum 1.19 mg/dL (0.70-1.30); EST Glomerular Filtration Rate 66 mL/min (>60); Est Glom Filt Rate - Afr Amer 80 mL/min (>60); Estimated Creatinine Clearance 63.07 ml/min; Glucose 147 mg/dL (74-106); Potassium 3.9 mmol/L (3.5-5.1); Sodium Level 140 mmol/L (136-145)
[2019-03-17] VITALS (18 sets, daily range): BP systolic 93–122; BP diastolic 46–101; PULSE 66–99; RESP 16–24; TEMP 36.3–37.7; O2SAT 92–100; BMI 25.5
--- NOTE | 2019-03-17 | IMM_PTH ---
PATIENT: SARHA ARMSTRONG Jr. LOC: MS3 U#:[id number] AGE/SX: 63/M ROOM: MS303 RE03/17/[address]: Dr. Kraig Maldonado MD : 1955 BED: 1 DIS: 03/20/2019 SPEC #: [id number] RECD: 03/21/19 12:20 STATUS: SOUAngeli REQ #: [id number] ZENON: 03/17/19 00:[address]: Kraig Maldonado DEPT: IMMUNOHISTOCHEMISTRY RECD BY: Patricia Berger ENTERED: 03/21/19 12:23 SP TYPE: IMMUNO OTHR DR: Dr. Dimitris Tubbs MD Tissues: Kidney, NOS Procedures: RCC (add) CD10 (add) CK7 (add) CK8 (add) Vimentin (add) 34BE12 (add) Pankeratin (initial) Pankeratin (add) PHYSICIAN & [place] [phone] SPECIMEN INFORMATION: Tissue Source: Right kidney Clinical Info: Neoplasm of right kidney Specimen Number: [id number] Blocks 7, 9, 13, and 14 CPT code: 42602, 69271 x27 METHODOLOGY: Deparaffinized sections of prefer/formalin-fixed tissue or PAP/DQ stained slides are incubated with monoclonal/polyclonal antibodies/oligonucleotide probes. Localization is made via biotin free immunoperoxidase method. Appropriate controls are performed and reacted as expected. Results on target cell population are indicated in the following table: RESULTS: ANTIBODY / CLONE RESULT Block 7 AE1-3 (AE1/AE3/PCK26) positive CK7 (OV-TL12/30) positive CK8 (50wuzxS56) positive CD10 (56C6) positive Vimentin (V9) positive 34BE12 (34BE12) positive, focal RCC (PN-15) positive Block 9 AE1-3 (AE1/AE3/PCK26) positive CK7 (OV-TL12/30) positive CK8 (86hkopB62) positive CD10 (56C6) positive, focal Vimentin (V9) positive 34BE12 (34BE12) positive RCC (PN-15) positive Block 13 AE1-3 (AE1/AE3/PCK26) positive CK7 (OV-TL12/30) positive CK8 (62pvwlY76) positive CD10 (56C6) positive, focal Vimentin (V9) positive 34BE12 (34BE12) positive, focal RCC (PN-15) positive Block 14 AE1-3 (AE1/AE3/PCK26) positive CK7 (OV-TL12/30) positive CK8 (75yajlG50) positive CD10 (56C6) positive, focal Vimentin (V9) positive 34BE12 (34BE12) negative RCC (PN-15) positive These tests were developed and their performance characteristics determined by [facility]. They may not have been cleared or approved by the U.S. Food and Drug Administration. The FDA has determined that such clearance or approval is not necessary. 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 Case has been reviewed in consultation with Dr. Richards who concurs with the above diagnosis. IDC:SHANNAN [place]:levi 03/22/19
--- NOTE | 2019-03-17 | KID_PTH ---
PATIENT: SARAH ARMSTRONG Jr. LOC: MS3 U#:[id number] AGE/SX: 63/M ROOM: MN303 RE03/17/[address]: Dr. Kraig Maldonado MD : [id number] BED: 1 DIS: 03/20/2019 SPEC #: [id number] RECD: 03/17/19 09:48 STATUS: OSIMN RETran #: [id number] ZENON: 03/17/19 00:[address]: Kraig Maldonado DEPT: SURGICAL PATHOLOGY RECD BY: Sabina Pruett ENTERED: 03/17/19 10:29 SP TYPE: KIDNEY OTHR DR: Dr. Dimitris Tubbs MD Tissues: Kidney, NOS Procedures: Frozen Section (charge) Surgery Specimen Level V HEADER OPERATION: Laparoscopic robotic right radical nephrectomy PRE-OP DIAGNOSIS: Neoplasm of right kidney TISSUE SUBMITTED: Right kidney FROZEN SECTION DIAGNOSIS Right kidney, radical nephrectomy: Larger lesion - calcified cystic lesion. Smaller lesion - no definite evidence of malignancy. Final pending permanent sections. 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 See cancer summary below. SJ:bernarda 03/22/19 KIDNEY CANCER SUMMARY: Procedure - radical nephrectomy Specimen laterality - right Tumor site - superior and middle pole Tumor size - largest tumor - 8 x 7 x 6 cm Tumor focality - multifocal (Four foci) See comment. Macroscopic extent of tumor - tumor limited to kidney Histologic type - papillary renal cell carcinoma Sarcomatoid features - not identified Tumor necrosis - not identified Histologic grade ([place] nuclear grade) - grade 2 Microscopic tumor extension - tumor limited to kidney Margins - margins uninvolved by invasive carcinoma Lymph-Vascular invasion - not identified Regional lymph nodes - no nodes submitted or found Distant metastasis - not applicable. Pathologic findings in non-neoplastic kidney - interstitial chronic inflammation * Ureter, subepithelial shana-Brunn's nests PATHOLOGIC STAGE: pT2a(m) pNx Mx) The above summary is in compliance with [employer] (CAP) Cancer Protocols Checklist and [place] [employer] Committee on Cancer (AJCC), Staging Manual, 8th Ed. COMMENT Four foci of carcinoma are noted, measuring 0.5 to 8 cm in greatest dimension. The largest tumor shows extensive calcification. Case has been reviewed in consultation with Dr. Richards who concurs with the above diagnosis. IDC:AM MICROSCOPIC DESCRIPTION Slides are reviewed. GROSS DESCRIPTION Received fresh for frozen section consultation/diagnosis labeled with the patient's name is a specimen designated right kidney. The specimen consists of right kidney containing 3 tumor masses and is surrounded by an irregular envelope of fibroadipose tissue. The tumor masses do not extend into the perirenal fat which measures 1.5 cm in thickness. The tumor masses are not present at the soft tissue line of the specimen. The entire specimen weighs 503 grams and measures 19 x 10 x 6 cm. The kidney measures 15 x 6 x 5 cm. The largest mass is present in the superior portion of the kidney and measures 8 x 7 x 6 cm. This mass is predominantly cystic and shows focal indurated area consistent with calcification of the wall. Focal solid areas are also noted. Sections of the solid area reveal grayish-brown tissue with focal area of hemorrhage and softening. The second mass is present in the middle portion of the kidney and roughly is spherical in shape and measures 3.5 cm in diameter. Sections reveal cystic cut surfaces without areas of hemorrhage, necrosis and softening. Adjacent to the second mass a third exophytic mass is noted in the middle portion of the kidney measuring 1.2 cm in diameter. This is spherical in shape and shows yellowish cut surfaces with out area of hemorrhage, necrosis and softening. All of these tumors do not invade into the pelvocaliceal system or renal sinus. All three tumors are sharply demarcated from the renal parenchyma which appears essentially unremarkable. The adrenal gland is absent. A 4 cm segment of ureter is present and essentially unremarkable. [employer] sections are submitted in 15 cassettes as follows: 1 - FS, intermediate-sized tumor; 2 - FS, largest tumor; 3 - resection margins, renal vessels and ureter; 4-7 - intermediate sized tumor mass; 8-12 - largest tumor mass. Cassette 12 is submitted after decalcification. 13 - smallest tumor mass; 14 - uninvolved portion of kidney; 15 - perirenal adipose tissue; renal sinus tissue and ureter. /SAMANTA:bernarda 03/20/19 More section of ureter are submitted in cassette #16. /SAMANTA:bernarda 03/21/19. TC: 0 CPT: 98404, 91930, 60375,49484
[2019-03-17] MEDS: Ciprofloxacin 400 MG/200 ML BAG 200 MG IV (07:32)
--- NOTE | 2019-03-17 10:15 | OP.PCM_ITS ---
Report of Operation Date of Procedure: 03/17/19 Pre-Operative Diagnosis: Large right cystic mass with enhancement on CT scan and MRI concerning for cancer. Post-Operative Diagnosis: same Surgery/Procedure Performed:: laparoscopic robotic assisted radical right nephrectomy Description of Surgical Findings:: 63-year-old male who was referred because of an abnormal cyst in his right kidney he underwent a CT scan with contrast that demonstrated enhancement within a very large cystic mass in his right kidney, we also did an MRI and the MRI also confirmed enhancement of a very large cystic mass in the right kidney I decided not to do a biopsy because possibility the biopsy could miss the cancer on a biopsy very high likelihood and also the rare chance of the biopsy could spread the cancer if it cystic cancer. Therefore we talked about doing surgery the cystic mass is very large and goes to the central portion of the kidney a partial nephrectomy would be heroic and very difficult to do therefore recommended a right radical nephrectomy because of the high likelihood of a malignancy 63-year-old male was taken back to the operating room taken back to the operating room and after smooth induction anesthesia he was placed supine on the table Lauren catheter was placed and then he was placed full flank with the right side up he had an axillary roll in place pressure points well-padded he was secured to the table we laid the arm against the side make sure that he was positioned so all the points of pressure were padded and he was secured to the table and comfortable looking. The abdomen was then shaved prepped and draped in usual sterile fashion using a needle to introduce the pneumoperitoneum with CO2 gas placed my camera trocar right arm trocar left arm trocar and fourth certified first assistant trocar and air seal port. I then docked the robot I first incised the white line of Toldt reflected the colon off the kidney all the way from superior to inferior I dissected the liver off the kidney this allowed the liver retracted out of the way I then elevated the inferior pole the kidney identified the gonadal vein and the ureter, I went above the gonadal vein elevated the ureter up March the way along the vena cava kocherized the duodenum off the kidney and then identified renal artery below the renal vein the artery was taken to clip down one clip up and then the vein was taken 2 clips down and one clip up and then dissected superiorly we dissected the adrenal gland off the kidney and then dissected all the way to superiorly part of the kidney as we dissect the superior portion of the kidney inadvertently we got into 1 of the cysts which had some brownish material this was identified and we corrected course went around the fat and then went back down inferiorly came across the tail of Gerota's fascia transected to the ureter the veins and then incised the kidney and came off the lateral aspect of the body with a kidney all the way superiorly once the kidney was completely freed up then we undocked the robot I placed a large Endo Catch bag into the abdomen went below the kidney trapped the large nephrectomy specimen to the bag extracted at the lower incision site that was opened up to close the incision site in 2 layers inspected the abdomen went back and laparoscopically after 5 minutes there was no bleeding we irrigated copiously again no signs of bleeding and then we irrigated copiously because of that brown material that looks possibly like purulent material. We sent the kidney off of the frozen and in the frozen section the grossly described a very large cystic mass they plan do more deeper cuts to assess for cancer. We then closed the 09/04/2011 trochars with Marcello Cedillo stitches and we closed the extraction site and 2 layers and closed the skin patient anesthetic was reversed to take back to PACU in good condition. Type of Anesthesia:: General Special Medications: none Specimen's removed: Right kidney Drains: lauren Estimated Blood Loss (mL): 40cc - Admit VTE Documentation VTE Present on Admission: No VTE Mechan Device Prophylaxis: SCD's
[2019-03-17 11:11] LABS: Hematocrit 43.9 % (40-54); Hemoglobin 14.8 g/dL (13.0-16.5); Mean Corp Hgb Conc 33.7 g/dL (32-36); Mean Corpuscular Hgb 30.9 pg (27.0-32.0); Mean Corpuscular Volume 91.6 fL (80-94); Mean Platelet Vol. 9.2 fl (6.2-12.0); Platelet Count 195 K/mm3 (150-450); RBC Distribution Width CV 12.6 % (11.6-14.6); RBC Distribution Width SD 42.5 fl (35.1-43.9); Red Blood Count 4.79 M/mm3 (4.6-6.2); White Blood Count 9.3 K/mm3 (4.4-11.0)
[2019-03-17 11:23] LABS: Anion Gap 7 (5-15); BUN 17 mg/dL (7-18); BUN/Creat Ratio 13.1 RATIO (10-20); Calcium,Total 8.2 mg/dL (8.5-10.1); Chloride 105 mmol/L (98-107); EST Glomerular Filtration Rate 60 mL/min (>60); Est Glom Filt Rate - Afr Amer 72 mL/min (>60); Estimated Creatinine Clearance 57.73 ml/min; Glucose 157 mg/dL (74-106); Potassium 4.2 mmol/L (3.5-5.1); Sodium Level 139 mmol/L (136-145)
[2019-03-17] MEDS: 0.45% Normal Saline 1,000 ML 125 ML IV ×2 (13:43→20:53)
[2019-03-17] MEDS: Morphine 2 MG/ML Syringe IV (13:47)
[2019-03-17] MEDS: 0.9% NaCl Peripheral Flush Adult/Peds IV ×2 (13:47→20:54)
[2019-03-17] MEDS: Ipratropium/Albuterol Sulfate 3 ML AMPUL.NEB INHALATION ×2 (13:48→18:57)
[2019-03-17] MEDS: HYDROcodone Bitartrate/Apap 5/325 Tablet PO (14:43)
[2019-03-17] MEDS: Morphine 4 MG/ML Syringe IV ×2 (17:28→20:56)
[2019-03-17] MEDS: Gentamicin Sulfate 1 OPTH.BTL 2 DRP LEFT EYE ×2 (17:28→21:02)
[2019-03-17] MEDS: Budesonide Respules 0.5 MG/2 ML AMPUL.NEB. INHALATION (18:57)
[2019-03-17] MEDS: Docusate Sodium 100 MG Capsule PO (21:01)
[2019-03-17] MEDS: Atorvastatin Calcium 80 MG Tablet PO (21:03)
[2019-03-17] MEDS: hydroCHLOROthiazide 25 MG Tablet PO (21:08)
[2019-03-17] MEDS: Metoprolol(XL)Succ 50 MG Tablet PO (21:08)
[2019-03-17] MEDS: Pantoprazole Sodium 20 MG Tablet PO (21:09)
[2019-03-17] MEDS: Lisinopril 20 MG Tablet PO (21:09)
[2019-03-17] MEDS: amLODIPine 5 MG Tablet PO (21:10)
[2019-03-18] MEDS: HYDROcodone Bitartrate/Apap 5/325 Tablet PO ×4 (01:23→19:00)
[2019-03-18 02:00] VITALS: BP 117/66; PULSE 70; RESP 18; TEMP 37; O2SAT 93
[2019-03-18] MEDS: Gentamicin Sulfate 1 OPTH.BTL 2 DRP LEFT EYE ×6 (02:22→21:06)
[2019-03-18] MEDS: Enoxaparin 40 MG/0.4 ML Syringe SC (05:19)
[2019-03-18] MEDS: 0.45% Normal Saline 1,000 ML 125 ML IV (05:23)
[2019-03-18 06:36] LABS: Hemoglobin 13.3 g/dL (13.0-16.5); Mean Corp Hgb Conc 33.3 g/dL (32-36); Mean Corpuscular Volume 90.3 fL (80-94); Mean Platelet Vol. 9.6 fl (6.2-12.0); Platelet Count 196 K/mm3 (150-450); RBC Distribution Width CV 12.9 % (11.6-14.6); RBC Distribution Width SD 42.6 fl (35.1-43.9); Red Blood Count 4.43 M/mm3 (4.6-6.2); White Blood Count 17.4 K/mm3 (4.4-11.0)
[2019-03-18] MEDS: Budesonide Respules 0.5 MG/2 ML AMPUL.NEB. INHALATION ×2 (06:45→18:44)
[2019-03-18 06:55] VITALS: PULSE 70; RESP 14; O2SAT 95
[2019-03-18] MEDS: Ipratropium/Albuterol Sulfate 3 ML AMPUL.NEB INHALATION ×2 (06:55→18:44)
[2019-03-18 07:10] LABS: Anion Gap 10 (5-15); BUN 21 mg/dL (7-18); BUN/Creat Ratio 13.5 RATIO (10-20); Calcium,Total 8.4 mg/dL (8.5-10.1); Chloride 104 mmol/L (98-107); Creatinine, Serum 1.56 mg/dL (0.70-1.30); EST Glomerular Filtration Rate 48 mL/min (>60); Est Glom Filt Rate - Afr Amer 58 mL/min (>60); Estimated Creatinine Clearance 48.11 ml/min; Glucose 148 mg/dL (74-106); Potassium 4.2 mmol/L (3.5-5.1); Sodium Level 137 mmol/L (136-145)
[2019-03-18 08:00] VITALS: BP 112/78; PULSE 74; RESP 16; TEMP 36.7; O2SAT 98
--- NOTE | 2019-03-18 08:06 | PCM.PROGNOTE ---
Subjective: Postoperative day #1 status post radical nephrectomy for large cystic mass concerning for renal cell carcinoma. Overnight he did well, he had some eye irritation and drops were given to him yesterday now is cleared up. We can use these as needed. Hemoglobin is stable. - Physical Exam General: Alert, Oriented x3, Cooperative HEENT: Atraumatic, PERRLA, EOMI, Normocephalic Neck: Supple, No JVD, Negative Carotid Bruits Lungs: Clear to auscultation, Normal air movement Cardiovascular: Regular rate, No murmurs Abdomen: Bowel Sounds Present, Soft, Non Tender Extremities: No edema, Capillary Refill Less than 3 Seconds Skin: No rashes, No breakdown Musculoskeletal: No Tenderness to Palpation of Joints or Extremities Neurological: Cranial nerves II-XII grossly intact Psych/Mental Status: Normal Affect, Appropriate Vital Signs Temp Pulse Resp BP Pulse Ox 98.6 F 70 18 117/66 93 03/18/19 02:00 03/18/19 02:00 03/18/19 02:00 03/18/19 02:00 03/18/19 02:00 Oxygen Flow Rate (L/min) 5 Oxygen Delivery Method Room Air Weight: 76.2 kg Body Mass Index (BMI) 25.5 Intake and Output for Last 24 Hours 03/16/19 03/17/19 03/18/19 23:59 23:59 23:59 Intake Total 1095.83 / 2035.83 2140 / 2140 Output Total 415 / 815 775 / 775 Balance 680.83 / 1220.83 1365 / 1365 Laboratory Tests Past 24 Hrs 03/17/19 03/17/19 03/18/19 11:03 11:03 06:14 WBC 9.3 17.4 H RBC 4.79 4.43 L Hgb 14.8 13.3 Hct 43.9 40.0 MCV 91.6 90.3 MCH 30.9 30.0 MCHC 33.7 33.3 RDW Std Deviation 42.5 42.6 RDW Coeff of Jose Alfredo 12.6 12.9 Plt Count 195 196 MPV 9.2 9.6 Sodium 139 Potassium 4.2 Chloride 105 Carbon Dioxide 27.0 Anion Gap 7 BUN 17 Creatinine 1.30 Estim Creat Clear Calc 57.73 Est GFR (MDRD) Af Amer 72 Est GFR (MDRD) Non-Af 60 BUN/Creatinine Ratio 13.1 Glucose 157 H Calcium 8.2 L 03/18/19 06:14 WBC RBC Hgb Hct MCV MCH MCHC RDW Std Deviation RDW Coeff of Jose Alfredo Plt Count MPV Sodium 137 Potassium 4.2 Chloride 104 Carbon Dioxide 23.0 Anion Gap 10 BUN 21 H Creatinine 1.56 H Estim Creat Clear Calc 48.11 Est GFR (MDRD) Af Amer 58 L Est GFR (MDRD) Non-Af 48 L BUN/Creatinine Ratio 13.5 Glucose 148 H Calcium 8.4 L Medical Necessity - Tobacco Use Smoking Status: Current every day smoker Tobacco Use: Cigarettes Assessment/Plan All Active Problems (Last Reviewed 01/09/19 @ 15:02 by Deepthi Avelar NP-C) Dizziness (Acute) ST elevation myocardial infarction involving left anterior descending coronary artery (Resolved) History of coronary artery stent placement (Resolved 12/22/15) Postoperative day #1 status post radical nephrectomy advance to full liquid diet, Kaiser catheter removed for voiding trial, ambulate the hallways, await for return of bowel function.
[2019-03-18] MEDS: Magnesium Hydroxide 30 ML UDC 15 ML PO (08:47)
[2019-03-18] MEDS: Docusate Sodium 100 MG Capsule PO ×2 (08:48→21:06)
--- NOTE | 2019-03-18 12:39 | CM.UR ---
Addendum entered by Sandy Westfall 03/18/19 12:41: Preferred Pharmacy: [facility] Insurance: [employer] Rx Benefit: Yes denies any concerns LNOK: Courtney LW/HPOA: None--declines additional information at this time. Living Arrangements: Side by side duplex. daughter lives in other side. Has 2 stories. Does get sob doing up to 2nd floor. Has first floor bathroom so will limit time going up and down stairs. ADL?s: Independent Transportation: drives self. 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 DME: nebulizer, cpap DME co: [facility] HHC: None SNF: None Goal: to return home. Denies any needs. DC PLAN: Home, No needs anticipated. Gulshan Westfall RN, CCM. Original Note: RN CM Assessment Introduced role of RN CM to patient. Patient is alert and able to participate in RN CM Assessment. Care providers, pharmacy, and demographics verified. at bedside. Presentation: Mass on kidney Admit Dx: radical right nephrectomy Re-Admit: no Barriers/Issues: none PCP: Dr. Tubbs Specialists: Dr. Quinn (pulm), Dr. Alex (cardiology) Preferred Pharmacy: Insurance: Rx Benefit: LNOK: LW/HPOA: Living Arrangements: ADL?s: Transportation: DME: None DME co: HHC: None SNF: None Goal: DC PLAN: Gulshan Westfall RN, CCM.
[2019-03-18 14:00] VITALS: BP 137/97; PULSE 76; RESP 16; TEMP 36.7; O2SAT 95
[2019-03-18] MEDS: CLARIFY ORDER NOTE (15:41)
[2019-03-18] MEDS: 0.45% Normal Saline 1,000 ML 75 ML IV (16:57)
[2019-03-18 18:44] VITALS: PULSE 71; RESP 16
[2019-03-18 20:20] VITALS: BP 139/93; PULSE 79; RESP 18; TEMP 36.5; O2SAT 93
[2019-03-18] MEDS: Atorvastatin Calcium 80 MG Tablet PO (21:06)
[2019-03-18] MEDS: Tamsulosin HCl 0.4 MG Capsule PO (21:06)
[2019-03-18] MEDS: Morphine 2 MG/ML Syringe IV (21:11)
[2019-03-18] MEDS: 0.9% NaCl Peripheral Flush Adult/Peds IV (21:12)
[2019-03-19] VITALS (10 sets, daily range): BP systolic 113–136; BP diastolic 65–83; PULSE 88–109; RESP 16–20; TEMP 36.3–37.3; O2SAT 88–96
[2019-03-19] MEDS: HYDROcodone Bitartrate/Apap 5/325 Tablet PO ×3 (02:50→14:22)
[2019-03-19] MEDS: 0.45% Normal Saline 1,000 ML 75 ML IV (06:21)
[2019-03-19] MEDS: Enoxaparin 40 MG/0.4 ML Syringe SC (06:22)
[2019-03-19] MEDS: Budesonide Respules 0.5 MG/2 ML AMPUL.NEB. INHALATION (06:55)
[2019-03-19] MEDS: Ipratropium/Albuterol Sulfate 3 ML AMPUL.NEB INHALATION ×3 (06:55→18:42)
[2019-03-19] MEDS: Morphine 2 MG/ML Syringe IV (08:24)
--- NOTE | 2019-03-19 09:02 | PCM.PROGNOTE ---
Subjective: Status post radical nephrectomy, he has been passing some liquid stool and gas difficulty with urination had to be straight cath last night and this morning we will increase his Flomax to twice daily we will Hep-Lock his IV fluids. - Physical Exam General: Alert, Oriented x3, Cooperative HEENT: Atraumatic, PERRLA, EOMI, Normocephalic Neck: Supple, No JVD, Negative Carotid Bruits Lungs: Clear to auscultation, Normal air movement Cardiovascular: Regular rate, No murmurs Abdomen: Bowel Sounds Present, Soft, Non Tender Extremities: No edema, Capillary Refill Less than 3 Seconds Skin: No rashes, No breakdown Musculoskeletal: No Tenderness to Palpation of Joints or Extremities Neurological: Cranial nerves II-XII grossly intact Psych/Mental Status: Normal Affect, Appropriate Vital Signs Temp Pulse Resp BP Pulse Ox 98.1 F 88 16 136/83 H 91 03/19/19 02:25 03/19/19 06:55 03/19/19 06:55 03/19/19 02:25 03/19/19 06:55 Oxygen Flow Rate (L/min) 2 Oxygen Delivery Method Room Air Weight: 76.2 kg Body Mass Index (BMI) 25.5 Intake and Output for Last 24 Hours 03/17/19 03/18/19 03/19/19 23:59 23:59 23:59 Intake Total 1095.83 / 2035.83 3273.75 / 3273.75 1466.25 / 1466.25 Output Total 415 / 815 2275 / 2275 2675 / 2675 Balance 680.83 / 1220.83 998.75 / 998.75 -1208.75 / -1208.75 Medical Necessity - Tobacco Use Smoking Status: Current every day smoker Tobacco Use: Cigarettes Assessment/Plan All Active Problems (Last Reviewed 01/09/19 @ 15:02 by Deepthi Avelar NP-C) Dizziness (Acute) ST elevation myocardial infarction involving left anterior descending coronary artery (Resolved) History of coronary artery stent placement (Resolved 12/22/15) Plan advance him to a regular diet, Hep-Lock fluids, Flomax twice daily straight cath as needed. Ambulate
[2019-03-19] MEDS: Tamsulosin HCl 0.4 MG Capsule PO ×2 (09:54→20:01)
--- NOTE | 2019-03-19 15:00 | NURSING ---
bladder scan for patient showed 647ml. encouraged pt to ambulate in hallway and attempt to void again. pt walked 2 laps in hallway and reports that he voided, but forgot to use urinal and voided unknown amount in toilet. pt stated that it is getting easier to void. straight cath for 900ml.
[2019-03-19] MEDS: hydroCHLOROthiazide 25 MG Tablet PO (20:01)
[2019-03-19] MEDS: Atorvastatin Calcium 80 MG Tablet PO (20:02)
[2019-03-19] MEDS: amLODIPine 5 MG Tablet PO (20:02)
[2019-03-19] MEDS: Pantoprazole Sodium 20 MG Tablet PO (20:02)
[2019-03-19] MEDS: Lisinopril 20 MG Tablet PO (20:03)
[2019-03-19] MEDS: Metoprolol(XL)Succ 50 MG Tablet PO (20:04)
[2019-03-20] MEDS: HYDROcodone Bitartrate/Apap 5/325 Tablet PO ×2 (00:04→10:18)
[2019-03-20 00:05] VITALS: BP 142/92; PULSE 85; RESP 20; TEMP 36.6; O2SAT 94
[2019-03-20 06:30] VITALS: BP 116/78; PULSE 81; RESP 18; TEMP 36.7; O2SAT 97
[2019-03-20] MEDS: Enoxaparin 40 MG/0.4 ML Syringe SC (06:31)
[2019-03-20 06:50] VITALS: O2SAT 93
--- NOTE | 2019-03-20 07:41 | PCM.DC.SUM ---
Discharge Date and Diagnosis Date of Admission: 03/17/19 Date of Discharge: 03/20/19 - Secondary Discharge Diagnosis Chronic Problems (Last Reviewed 01/09/19 @ 15:02 by BRE ZafarC) Pure hypercholesterolemia (Chronic) Essential (primary) hypertension (Chronic) Nicotine dependence (Chronic) Atherosclerosis of coronary artery of [place] heart without angina pectoris (Chronic) PCI-ESTEPHANIA-Mid LAD w/ 3.5 x 18 mm Xience Alpine Stent 12/22/15 Anxiety (Chronic) Stage 4 very severe COPD by GOLD classification (Chronic) FEV1 32% of predicted SANDRA (obstructive sleep apnea) (Chronic) Nasal CPAP 15 cm water Hospital Course and Treatment Operations: None Procedures: None Summary of Care Provided: The patient is a 63 year old male with large right renal mass status post nephrectomy doing well he has been urinating not emptying completely but urinating much better we will send him home with Flomax 0.4 mg twice daily some pain medicine and stool softeners tolerating regular diet passing his bowels ambulating the hallways clinically stable. - Physical Exam General: Alert, Oriented x3, Cooperative HEENT: Atraumatic, PERRLA, EOMI, Normocephalic Neck: Supple, No JVD, Negative Carotid Bruits Lungs: Clear to auscultation, Normal air movement Cardiovascular: Regular rate, No murmurs Abdomen: Bowel Sounds Present, Soft, Non Tender Extremities: No edema, Capillary Refill Less than 3 Seconds Skin: No rashes, No breakdown Musculoskeletal: No Tenderness to Palpation of Joints or Extremities Neurological: Cranial nerves II-XII grossly intact Psych/Mental Status: Normal Affect, Appropriate Vital Signs Temp Pulse Resp BP Pulse Ox 98.1 F 81 18 116/78 93 03/20/19 06:30 03/20/19 06:30 03/20/19 06:30 03/20/19 06:30 03/20/19 06:50 Oxygen Flow Rate (L/min) 2 Oxygen Delivery Method Room Air Weight: 76.2 kg Body Mass Index (BMI) 25.5 Intake and Output for Last 24 Hours 03/18/19 03/19/19 03/20/19 23:59 23:59 23:59 Intake Total 3273.75 / 3273.75 2654.17 / 3298.34 844.17 / 844.17 Output Total 2275 / 2275 2900 / 3400 500 / 500 Balance 998.75 / 998.75 -245.83 / -101.66 344.17 / 344.17 Discharge Diet: Light diet - advance as tolerated Discharge Activity: Return to Normal Activity, May not drive while taking narcotic pain medications., May Shower Call your doctor if your incision/area has: Continuous Slow Oozing, Sudden Increased Bleeding Call your doctor if you observe: Fever of 101 or Higher Suture Line Care: Avoid Pulling/Pushing, Avoid Pinching/Bending Home Medications: Medications to take at Discharge nitroglycerin 0.4 mg sublingual tablet 0.4 mg SUBLINGUAL Q5M PRN #25 tab 05/25/18 Nicotine [Nicoderm Cq] 1 patch TRANSDERMAL ONCE PRN 08/24/18 Albuterol Aerosols [Ventolin Aerosols] 2.5 mg INHALATION Q4H PRN PRN #120 vial 08/25/18 albuterol sulfate HFA 90 mcg/actuation aerosol inhaler 2 puff INHALATION Q4H PRN #18 g 02/13/19 Amlodipine [Norvasc] 5 mg PO DAILY 03/07/19 Aspirin [Aspirin, Baby] 81 mg PO DAILY@0800 03/07/19 Atorvastatin Calcium [Lipitor] 80 mg PO QHS 03/07/19 Clopidogrel Bisulfate [Plavix] 75 mg PO DAILY 03/07/19 Fluticasone/Umeclidin/Vilanter [Trelegy Ellipta 100-62.5-25] 1 ea IH DAILY 03/07/19 Lisinopril/Hydrochlorothiazide [Zestoretic 20/25 Tablet] 1 tab PO DAILY 03/07/19 Metoprolol(XL)Succ [Toprol Xl (Beta Gerardo)] 50 mg PO DAILY 03/07/19 Potassium Chloride 10 meq PO DAILY 03/07/19 Primary Care Physician: Dimitris Tubbs MD [Primary Care Provider] - Please Follow Up With: Kraig Maldonado MD When: call for appt. Medical Necessity - Tobacco Use Smoking Status: Current every day smoker Tobacco Use: Cigarettes Meaningful Use Info Meaningful Use Diagnoses (Choose all that apply): None applicable
--- NOTE | 2019-03-20 07:44 | DCINST_ITS ---
Discharge Diet: Light diet - advance as tolerated Discharge Activity: Return to Normal Activity, May not drive while taking narcotic pain medications., May Shower Lifting Restrictions: no lifting. Call your doctor if your incision/area has: Continuous Slow Oozing, Sudden Increased Bleeding Call your doctor if you observe: Fever of 101 or Higher Suture Line Care: Avoid Pulling/Pushing, Avoid Pinching/Bending Instructions: Laparoscopic Nephroureterectomy Allergies/Adverse Reactions: Allergies ceftriaxone sodium [From Rocephin] Adverse Reaction (Severe, Verified 03/07/19 08:59) Other Medications to take at Discharge nitroglycerin 0.4 mg sublingual tablet 0.4 mg SUBLINGUAL Q5M PRN #25 tab 05/25/18 Nicotine [Nicoderm Cq] 1 patch TRANSDERMAL ONCE PRN 08/24/18 Albuterol Aerosols [Ventolin Aerosols] 2.5 mg INHALATION Q4H PRN PRN #120 vial 08/25/18 albuterol sulfate HFA 90 mcg/actuation aerosol inhaler 2 puff INHALATION Q4H PRN #18 g 02/13/19 Amlodipine [Norvasc] 5 mg PO DAILY 03/07/19 Aspirin [Aspirin, Baby] 81 mg PO DAILY@0800 03/07/19 Atorvastatin Calcium [Lipitor] 80 mg PO QHS 03/07/19 Clopidogrel Bisulfate [Plavix] 75 mg PO DAILY 03/07/19 Fluticasone/Umeclidin/Vilanter [Trelegy Ellipta 100-62.5-25] 1 ea IH DAILY 03/07/19 Lisinopril/Hydrochlorothiazide [Zestoretic 20/25 Tablet] 1 tab PO DAILY 03/07/19 Metoprolol(XL)Succ [Toprol Xl (Beta Gerardo)] 50 mg PO DAILY 03/07/19 Potassium Chloride 10 meq PO DAILY 03/07/19 Primary Care Physician: Dimitris Tubbs MD [Primary Care Provider] - Test Results: Test results from this visit will be discussed in further detail at your follow- up appointment, if applicable. Please Follow Up With: Kraig Maldonado MD When: in 2 weeks, please call to make an appointment.
[2019-03-20] MEDS: Tamsulosin HCl 0.4 MG Capsule PO (09:26)
[2019-03-20] MEDS: Docusate Sodium 100 MG Capsule PO (09:26)
[2019-03-20 09:52] VITALS: BP 125/87; PULSE 79; RESP 18; TEMP 36.6; O2SAT 96
== END 2019-03-20 11:00 | disposition home or self-care (01) | DRG 658 ==
LOC: ACINP 06:14 → MS3 03-20 07:38
PROVIDERS: Anesthesiology; Admitting Provider Urology; Family Provider Internal Medicine; PCP Internal Medicine; Referring Provider Urology; Visit Provider Urology
PROC: 0TT04ZZ Resection of Right Kidney, Percutaneous Endoscopic Approach (ICD-10-PCS; CPT 50546; principal; 2019-03-17 07:10)
DX: C64.1 Malignant neoplasm of right kidney, except renal pelvis (principal); I25.10 Atherosclerotic heart disease of native coronary artery without angina pectoris; J44.9 Chronic obstructive pulmonary disease, unspecified; G47.33 Obstructive sleep apnea (adult) (pediatric); I10 Essential (primary) hypertension; E78.00 Pure hypercholesterolemia, unspecified; F41.9 Anxiety disorder, unspecified; F17.210 Nicotine dependence, cigarettes, uncomplicated; Z95.5 Presence of coronary angioplasty implant and graft
CPT/HCPCS: 36415; 80048; 85027; 88307; 88331; 88341; 88342; 94640; 94762; J7120; A4216; J0744; J2405

== ENCOUNTER → 2019-05-17 | Outpatient (CLI) | payer BC, SELFPAY ==
[2019-05-17 11:27] VITALS: BMI 24.5
[2019-05-17 14:46] LABS: Anion Gap 5 (5-15); BUN 18 mg/dL (7-18); Calcium,Total 9.4 mg/dL (8.5-10.1); Chloride 103 mmol/L (98-107); Creatinine, Serum 1.63 mg/dL (0.70-1.30); EST Glomerular Filtration Rate 46 mL/min (>60); Est Glom Filt Rate - Afr Amer 56 mL/min (>60); Glucose 156 mg/dL (74-106); Potassium 4.3 mmol/L (3.5-5.1); Sodium Level 137 mmol/L (136-145)
== END | disposition home or self-care (01) ==
LOC: BIMLAB 11:40
PROVIDERS: Family Provider Internal Medicine; PCP Internal Medicine; Visit Provider Internal Medicine
DX: I10 Essential (primary) hypertension (principal)
CPT/HCPCS: 36415; 80048

== ENCOUNTER → 2019-11-03 | Outpatient (CLI) | payer BC, SELFPAY ==
[2019-08-17 14:13] VITALS: BMI 24.1
[2019-11-03 15:07] LABS: Hematocrit 45.8 % (40-54); Hemoglobin 15.1 g/dL (13.0-16.5); Mean Corpuscular Hgb 29.6 pg (27.0-32.0); Mean Corpuscular Volume 89.8 fL (80-94); Mean Platelet Vol. 8.9 fl (6.2-12.0); Platelet Count 271 K/mm3 (150-450); RBC Distribution Width CV 12.8 % (11.6-14.6); RBC Distribution Width SD 42.6 fl (35.1-43.9); White Blood Count 6.5 K/mm3 (4.4-11.0)
[2019-11-03 15:21] LABS: Anion Gap 4 (5-15); BUN 18 mg/dL (7-18); BUN/Creat Ratio 12.4 RATIO (10-20); Calcium,Total 9.1 mg/dL (8.5-10.1); Chloride 106 mmol/L (98-107); Creatinine, Serum 1.45 mg/dL (0.70-1.30); EST Glomerular Filtration Rate 52 mL/min (>60); Est Glom Filt Rate - Afr Amer 63 mL/min (>60); Glucose 110 mg/dL (74-106); Sodium Level 139 mmol/L (136-145)
== END | disposition home or self-care (01) ==
LOC: LAB 14:50
PROVIDERS: PCP Internal Medicine; Referring Provider Urology; Visit Provider Urology
DX: C64.1 Malignant neoplasm of right kidney, except renal pelvis (principal)
CPT/HCPCS: 36415; 80048; 85027

== ENCOUNTER → 2019-11-29 | Outpatient (CLI) | payer BC, SELFPAY ==
[2019-11-06 14:14] VITALS: BMI 25.0
--- NOTE | 2019-11-29 08:25 | CT_ITS ---
STUDY: LOW DOSE CT LUNG CANCER SCREENING REASON FOR EXAM: Male, 64 years old. TOBACCO USE, 1 PPD X 20 YRS. RADIATION DOSAGE (If Supplied By Facility): CTDIvol = ( 3.02 ) mGy, DLP = ( 108.72 ) mGycm TECHNIQUE: No contrast was administered. Low dose technique was utilized (average mAS-38 and kVp 120). 1.25 mm axial source images with a slice interval of 1.25-mm were reconstructed in lung windows. 2.5 mm axial source images with a slice interval of 2.5-mm were reconstructed in lung windows. 5.0 mm axial source images with a slice interval of 5.0-mm were reconstructed in soft tissue windows. Nodule measured using lung windows on PACS and/or independent workstation with automated measurement of minimum and maximum diameter. Nodule measurement reported as average diameter rounded to the nearest whole number. Growth is defined as an increase ins size of greater than 1.5 mm. COMPARISON: Comparison is made with prior study dated December 02, 2018. NODULES: Stable 2 mm x 2 mm pleural-based nodule in the left upper lobe as seen on axial image #39. Stable 2 mm x 2 mm granuloma in the lateral aspect of the right upper lobe. Emphysema: Stable diffuse emphysematous changes of the lungs with evidence of bullous formation. Stable scarring at the lung apices. Stable scarring along the anterior lateral aspect of the right lower lobe. Aorta: Unremarkable. Coronary arteries: Coronary artery calcification. Mediastinal nodes: Small benign-appearing mediastinal lymph nodes. Other chest and abdominal findings: The previously seen soft tissue mass with peripheral calcification in the right upper quadrant is not seen at this time. CT/Low Dose CT Lung Screening IMPRESSION: Lung-RADS category 2 - Continue annual screening with LDCT in 12 months. IMPORTANT NOTES FOR USE: ACR Lung-RADS Version 1.0 Assessment Categories Release Date: November 20, 2013 Category: Coded 0-4 bases on nodule(s) with highest degree of suspicion. Negative screen is defined as categories 1 and 2; a positive screen is defined as categories 3 and 4. Category 3 and 4A nodules that are unchanged on interval CT should be coded as category 2, and individuals returned to screening in 12 months. Category 4X: Category 3 or 4 nodules with additional imaging findings that increase the suspicion of lung cancer, such as spiculation, GGN that doubles in size in 1 year, enlarged lymph notes, etc. Category Modifiers: S (significant finding unrelated to lung cancer) and C (prior history of treated lung cancer) may be added to the 0-4 Lung-RADS Electronically Signed: Kam Alva, at 9:23 EDT , Service support ,
== END | disposition home or self-care (01) ==
LOC: CT 08:25
PROVIDERS: PCP Internal Medicine; Referring Provider Nurse Practitioner Acute Care; Visit Provider Nurse Practitioner Acute Care
DX: F17.200 Nicotine dependence, unspecified, uncomplicated (principal)
CPT/HCPCS: G0297

== ENCOUNTER → 2019-12-27 | Outpatient (CLI) | payer BC, SELFPAY ==
[2019-07-10 15:15] VITALS: BMI 24.5
[2019-11-06 14:14] VITALS: BMI 25.0
--- NOTE | 2019-12-28 13:34 | PFT ---
INTRODUCTION: The patient is a 64-year-old -[place] male that presents for pulmonary function studies secondary to a diagnosis of COPD. Respiratory therapy reports good patient effort. Bronchodilators were used during testing. INTERPRETATION: Forced expiration spirometry demonstrates the presence of a very severe large airways obstructive ventilatory defect. There was no significant response to aerosolized bronchodilators. Spirograms are of fair quality and do not plateau indicating slow emptying of the lungs. Body plethysmography was performed and reveals an elevated TLC and RV, indicative of underlying hyperinflation and air trapping. Diffusing capacity by single breath CO was severely reduced at 33% of predicted. When compared to pulmonary function studies from January 2019, there has been an 11% reduction in FEV1 along with a 16% reduction in DLCO. IMPRESSION: Irreversible very severe large airways obstructive ventilatory defect with associated hyperinflation, air trapping and symmetric reduction in diffusing capacity. There has been worsening of the patient's pulmonary function studies since January 2019, as noted above.
--- OUTSIDE RECORDS SUMMARY | 2020-05-12 07:09 | XMS RPT_ITS | CCD ---
:1955 External Reference #:[id number] Author Organization [facility] Care Team Providers Name Role Phone Rosio BRO, S Unavailable Justin Unavailable Nakia Adhikari RN, Messi Unavailable Nakia Adhikari RN, Messi GODWIN Attending Unavailable MARTHA Primary Care Unavailable MARVIN Attending Unavailable Rosio BRO, S Unavailable Allergies Reported Allergen Reaction(s) Severity Date of Onset Location ceftriaxone facial swelling, Critical, 01-10-2016 - [facility], unknown Critical Group ([id number]) Medications Medication Name Sig Date Prescriber Location acetaminophen ACETAMINOPHEN 325 MG 01-10-2016 [facility] TABS As needed Group ([id number]) ACETAMINOPHEN [id number] Kavita Adhikari RN albuterol PROVENTIL HFA 108 (90 09-14-2016 Alyssia Lopes [facility]) MCG/ACT AERS 2 Group ( 99343) puffs INH q 4 hours PRN SOB ALBUTEROL SULFATE [id number] Deepthi Avelar CHILDREN'S LITERATURE PROFESSOR PROVENTIL HFA 108 (90 Base) 09-14-2016 Anthony Quinn DO [facility] MCG/ACT AERS 2 puffs INH q 4 (44 691) hours PRN SOB ALBUTEROL SULFATE [id number] Anthony Quinn DO PROVENTIL HFA 108 (90 Base) 09-14-2016 Anthony Quinn DO [facility] MCG/ACT AERS 2 puffs INH q 4 (44 691) hours PRN SOB ALBUTEROL SULFATE [id number] Anthony Quinn DO PROVENTIL HFA 108 (90 Base) 09-14-2016 Anthony Quinn DO [facility] MCG/ACT AERS 2 puffs INH q 4 (44 691) hours PRN SOB ALBUTEROL SULFATE [id number] Anthony Quinn DO PROVENTIL HFA 108 (90 Base) 09-14-2016 Anthony Quinn DO [facility] MCG/ACT AERS 2 puffs INH q 4 (44 151) hours PRN SOB ALBUTEROL SULFATE [id number] Anthony Quinn DO amLODIPine NORVASC 5 MG TABS 01-15-2016 Radha Daniel art One tablet by mouth DILIA Yates Group (4 4691) daily AMLODIPINE BESYLATE [id number] Lionel Alex MD aspirin ASPIRIN CHILDRENS 01-10-2016 Mary Grace Daniel art 81 MG CHEW One [facility] DOBBS Group (65812) tablet by mouth daily ASPIRIN [id number] Lionel Alex MD atorvastatin ATORVASTATIN 01-10-2016 Kavita Adhikari RN [facility] CALCIUM 80 MG TABS Group (44 691) One tablet by mouth daily ATORVASTATIN CALCIUM 99868149127 Lionel Alex MD clopidogrel PLAVIX 75 MG TABS 01-10-2016 Mary Grace Daniel art One tablet by mouth [facility] DOB[facility] Group (4 4691) daily CLOPIDOGREL BISULFATE [id number] Lionel Alex MD hydroCHLOROthiazide / LISINOPRIL-HYDROCHL 01-10-2016 Kavita Nunez [facility] lisinopril OROTHIAZIDE 20-25 Group (446 91) MG TABS One tablet by mouth daily LISINOPRIL-HYDROCHL OROTHIAZIDE 58303871669 Mary Grace Hernandez PA-C lisinopril LISINOPRIL 20 MG 01-10-2016 [facility] TABS One tablet by Group (44 691) mouth daily LISINOPRIL [id number] Kavita Adhikari RN metoprolol TOPROL XL 50 MG 01-10-2016 Kavita Correa rt [id number] (ER) One Group (44 691) tablet by mouth daily METOPROLOL SUCCINATE 85895361340 Mary Grace Hernandez PA-C TOPROL XL 50 MG [id number] (ER) 01-10-2016 Kavita Merrill [facility] (30332) One tablet by mouth daily METOPROLOL SUCCINATE 14911149842 Mary Grace Hernandez PA-C TOPROL XL 50 MG [id number] (ER) 01-10-2016 Kavita Adhikari RN [facility] Group (40101) One tablet by mouth daily METOPROLOL SUCCINATE 42283711972 Mary Grace Hernandez PA-C TOPROL XL 50 MG [id number] (ER) 01-10-2016 Kavita Merrill [facility] Group (05117) One tablet by mouth daily METOPROLOL SUCCINATE 00720914927 Mary Grace Hernandez PA-C TOPROL XL 50 MG [id number] (ER) 01-10-2016 Kavita Merrill [facility] Group (83910) One tablet by mouth daily METOPROLOL SUCCINATE 47358155261 Mary Grace Hernandez PA-C nicotine NICODERM CQ 14 MG/24HR 09-14-2016 Anthony Quinn DO [facility] PT24 Apply 1 patch daily x ( 66394) 2 weeks NICOTINE 92295692977 Anthony Quinn DO NICODERM CQ 7 MG/24HR 09-14-2016 Anthony Quinn DO [facility] PT24 Apply 1 patch daily (20199) x 2 weeks NICOTINE 55569193435 Anthony Quinn DO NICODERM CQ 21 MG/24HR 09-14-2016 Anthony Palumbo Brown DO [facility] PT24 Apply 1 patch daily (58604) x 6weeks NICOTINE 91590971149 Anthony Quinn DO NICODERM CQ 14 MG/24HR 09-14-2016 Anthony Palumbo Brown DO [facility] PT24 Apply 1 patch daily (46580) x 2 weeks NICOTINE 61855413995 Anthony Quinn DO NICODERM CQ 7 MG/24HR 09-14-2016 Anthony Palumbo Brown DO [facility] PT24 Apply 1 patch daily (93339) x 2 weeks NICOTINE 75535158666 Anthony Quinn DO NICODERM CQ 14 MG/24HR 09-14-2016 Anthony Palumbo Brown DO [facility] PT24 Apply 1 patch daily (35068) x 2 weeks NICOTINE 18548326423 Anthony Quinn DO NICODERM CQ 21 MG/24HR 09-14-2016 Anthony Palumbo Brown DO [facility] PT24 Apply 1 patch daily (08669) x 6weeks NICOTINE 64591608485 Anthony Quinn DO NICODERM CQ 7 MG/24HR 09-14-2016 Anthony Palumbo Brown DO [facility] PT24 Apply 1 patch daily (39444) x 2 weeks NICOTINE 07831403889 Anthony Quinn DO NICODERM CQ 14 MG/24HR 09-14-2016 Anthony Palumbo Brown DO [facility] PT24 Apply 1 patch daily (30637) x 2 weeks NICOTINE 12423315064 Anthony Quinn DO NICODERM CQ 7 MG/24HR 09-14-2016 Anthony Quinn DO [facility] PT24 Apply 1 patch daily (07510) x 2 weeks NICOTINE 24081522945 Anthony Quinn DO NICODERM CQ 21 MG/24HR 09-14-2016 Anthony Palumbo Brown DO [facility] PT24 Apply 1 patch daily (68583) x 6weeks NICOTINE 03276719402 Anthony Quinn DO NICODERM CQ 7 MG/24HR 09-14-2016 Anthony Palumbo Brown DO [facility] PT24 Apply 1 patch daily (85033) x 2 weeks NICOTINE 90213864979 Anthony Quinn DO NICODERM CQ 21 MG/24HR 09-14-2016 Anthony Palumbo Brown DO [facility] PT24 Apply 1 patch daily (39733) x 6weeks NICOTINE 84280573062 Anthony Quinn DO NICODERM CQ 14 MG/24HR 09-14-2016 Anthony Palumbo Brown DO [facility] PT24 Apply 1 patch daily (11262) x 2 weeks NICOTINE 05363902234 Anthony Quinn DO NICODERM CQ 21 MG/24HR 01-15-2016 - 09-14-2016 Anthony Quinn DO [facility] PT24 Apply 1 patch daily (47274) x 6weeks NICOTINE 99431005656 Anthony Quinn DO NICODERM CQ 21 MG/24HR 01-15-2016 Kavita Adhikari RN [facility] PT24 Apply once a day for (01366 ) a month then will need decreased dose: call for rx NICOTINE [id number] Lionel Alex MD NICOABDOULAYE CQ 21 MG/24HR 01-15-2016 - 09-14-2016 [facility] PT24 Apply once a day for (66793 ) a month then will need decreased dose: call for rx NICOTINE 35655210434 Fatimah Izquierdo LPN NICODERM CQ 21 MG/24HR 01-15-2016 Kavita Adhikari RN [facility] eart Group PT24 Apply once a day for (38258 ) a month then will need decreased dose: call for rx NICOTINE [id number] MD DAVI Paulino CQ 21 MG/24HR 01-15-2016 - 09-14-2016 [facility] PT24 Apply once a day for (83785 ) a month then will need decreased dose: call for rx NICOTINE 83854242542 Fatimah Izquierdo LPN NICODERM CQ 21 MG/24HR 01-15-2016 Kavita Adhikari RN [facility] eart Group PT24 Apply once a day for (07901 ) a month then will need decreased dose: call for rx NICOTINE 35598535124 MD DAVI Paulino CQ 21 MG/24HR 01-15-2016 - 09-14-2016 [facility] PT24 Apply once a day for (48859 ) a month then will need decreased dose: call for rx NICOTINE 41121633997 Fatimah Izquierdo LPN NICODERM CQ 21 MG/24HR 01-15-2016 Kavita Adhikari RN [facility] PT24 Apply once a day for (92826 ) a month then will need decreased dose: call for rx NICOTINE 11941801860 Lionel Alex MD NICODERM CQ 21 MG/24HR 01-15-2016 - 09-14-2016 [facility] PT24 Apply once a day for (59300 ) a month then will need decreased dose: call for rx NICOTINE 63988250668 Fatimah Wolff Felecia WATTSN nitroglycerin NITROSTAT 0.4 MG SUBL 1 01-10-2016 [facility] tablet under tongue every (4 4632) 5 min up to 3 X NITROGLYCERIN 82425962696 Kavita Adhikari RN tiotropium SPIRIVA RESPIMAT 2.5 01-10-2016 - 09-14-2016 [facility] MCG/ACT AERS inhale as (4469 1) directed TIOTROPIUM BROMIDE MONOHYDRATE 67018917090 Kavitatarah Adhikari RN SPIRIVA RESPIMAT 2.5 MCG/ACT 01-10-2016 [facility] (76010) AERS inhale as directed TIOTROPIUM BROMIDE MONOHYDRATE 58835863631 Kavita Adhikari RN SPIRIVA RESPIMAT 2.5 MCG/ACT 01-10-2016 - 09-14-2016 [facility] (64179) AERS inhale as directed TIOTROPIUM BROMIDE MONOHYDRATE 45031388797 Anthony Quinn DO SPIRIVA RESPIMAT 2.5 MCG/ACT 01-10-2016 [facility] (57580) AERS inhale as directed TIOTROPIUM BROMIDE MONOHYDRATE 75722407393 Kavita Adhikari RN SPIRIVA RESPIMAT 2.5 MCG/ACT 01-10-2016 - 09-14-2016 [facility] (45377) AERS inhale as directed TIOTROPIUM BROMIDE MONOHYDRATE 49283448480 Anthony Quinn DO SPIRIVA RESPIMAT 2.5 MCG/ACT 01-10-2016 [facility] (96764) AERS inhale as directed TIOTROPIUM BROMIDE MONOHYDRATE 62452983808 Kavita Adhikari RN SPIRIVA RESPIMAT 2.5 MCG/ACT 01-09-2015 - 09-14-2016 [facility] (60274) AERS inhale as directed TIOTROPIUM BROMIDE MONOHYDRATE 69018268309 Anthony Quinn DO SPIRIVA RESPIMAT 2.5 MCG/ACT 01-10-2016 [facility] (56959) AERS inhale as directed TIOTROPIUM BROMIDE MONOHYDRATE 51360640573 Kavita Adhikari RN SPIRIVA RESPIMAT 2.5 MCG/ACT 01-09-2015 - 09-14-2016 [facility] (73640) AERS inhale as directed TIOTROPIUM BROMIDE MONOHYDRATE 97227575280 Anthony Quinn DO traMADol TRAMADOL HCL 50 MG 01-10-2016 - [facility] eart TABS One tablet by 09-14-2016 Group (44 691) mouth daily TRAMADOL HCL 19150066674 Kavita Adhikari RN umeclidinium INCRUSE ELLIPTA 62.5 09-14-2016 Fatimah Mariella [facility] MCG/INH AEPB 1 puff Izquierdo POST HOLE DIGGER Group (4 4691) inhaled daily UMECLIDINIUM BROMIDE 96510662460 Anthony Quinn DO INCRUSE ELLIPTA 62.5 MCG/INH 09-14-2016 Fatimah Mariella Yousifach POST HOLE DIGGER [facility] AEPB 1 puff inhaled daily (42275 ) UMECLIDINIUM BROMIDE 09025603552 Anthony Quinn DO INCRUSE ELLIPTA 62.5 MCG/INH 09-14-2016 Fatimah Mariellapoornima Yousifach POST HOLE DIGGER [facility] AEPB 1 puff inhaled daily (08212 ) UMECLIDINIUM BROMIDE 78629575612 Anthony Quinn DO INCRUSE ELLIPTA 62.5 MCG/INH 09-14-2016 Fatimah Wolff Felecia VIRGEN [facility] AEPB 1 puff inhaled daily (71867 ) UMECLIDINIUM BROMIDE 34843693562 Anthony Quinn DO INCRUSE ELLIPTA 62.5 MCG/INH 09-14-2016 Fatimah Wolff Felecia VIRGEN [facility] AEPB 1 puff inhaled daily (30639 ) UMECLIDINIUM BROMIDE 75560266168 Anthony Quinn DO varenicline CHANTIX 0.5 MG TABS 1 09-14-2016 - [facility] tab daily x 3 days, 10-13-2016 DO Group (4 4691) followed by 1 tab twice daily x 4 days. VARENICLINE TARTRATE 80998945079 Anthony Quinn DO CHANTIX CONTINUING MONTH 09-14-2016 - 10-13-2016 Anthony Hawkins [facility] ALEJANDRO 1 MG TABS 1 tab daily (60363 ) by mouth VARENICLINE TARTRATE [id number] Anhtony Quinn DO Problems Active Problems Category Problem Name Status Date Location Acute myocardial Acute ST segment Active 01-10-2016 - [facility] infarction elevation myocardial Group ( 01751) infarction involving left anterior descending coronary artery Coronary atherosclerosis Coronary atherosclerosis Active 12-24 - [facility] and other heart disease Grou p (17722) Disorders of lipid Hyperlipidemia Active 01-10-2016 - [facility] metabolism Group (59912) Essential hypertension Hypertensive disorder Active [facility] (02745) Screening or history of Tobacco dependence Active 01-10-2016 - [facility] mental health and syndrome Group (446 91) substance abuse Unclassified Breathing-related sleep Active 09-14-[address] [facility] disorder Group (91198) Unclassified Placement of stent in Active 01-10-2016 [facility] coronary artery Group (05684 ) Unclassified Long-term drug therapy Active 01-10-2016 - [facility] (21825) Past or Other Problems Category Problem Name Status Date Location Other aftercare Other jail (current) Completed 01-10-2016 - [facility] drug therapy Group (19002) Other circulatory Cardiovascular stress test Completed 7 - [facility] disease abnormal Group (34479) Other lower Dyspnea Completed 09-14-2016 - [facility] respiratory disease Group (4 4691) Other nutritional; Body mass index (BMI) Completed 04-17-2016 - [facility] endocrine; and 25.0-25.9, adult Group (44 691) metabolic disorders Other screening for Electrocardiogram abnormal Completed 017 - Pulmonary suspected conditions Medicin e of (not mental [facility] (87080) disorders or infectious disease) Results Result Name Value Range Unit Interpretation Flag Date Location xr chest 1 view on 2018-08-24 XR CHEST 1 VIEW ORIGINAL Normal 08-24-2018 [facility] XR CHEST 1 VIEW [facility] ([place]) ([address]558) CLINICAL STATEMENT: chest pain COMPARISON: 11/10/2017 FINDINGS: The cardiomediasti nal contours are within normal limits. There is no consolidation, vascular congestion, pleural effusion, or appreciable pneumothorax. Scarring and/or atelectasis is again see n adjacent to the RIGHT late ral costophrenic angle, unchanged. The visualized osseous structures are intact. IMPRESSION: No acute cardiopulmonary abnormality. I have personally reviewed t he images of this examination and agree with the resident's findings and interpretation. Interpreted By: Lane Sanabria Preliminary Report By: Renny Ramirez DO Electronically Signed By: Lane Sanabria Dictated Date: 08/24/2018 5:18:20 PM Prelim Date: 08/24/2018 5:19:11 PM Sign Date: 08/24/2018 5:44:58 PM trop on 2018-08-24 Troponin I.cardiac <0.020 0.000-0.040 ng/mL Normal 9 [facility] ([place]) ([address]59) Comment: Result Comment: Troponin I r eference range: 0.00-0.040 ng/mL Negative an d non-diagnostic. >0.040 ng/mL Consistent with cardiac damage, increased clinical risk and possibility of myocardial in farction. Serial measurements, a rise & fall in test results, clinical histo ry, appropriate symptoms and/or ECG changes may help assess possibility of [place]. *Other non-acute coronary sy ndrome conditions such as CHF, myoc arditis, pulmonary emboli, sepsis and cardiac surgery could result in myoc ardial damage and increased troponi n levels. Performed By: #### CBC, ADIF F, ANEU, DIMER #### [address] [address] #### BMP, GFR, TROP, PBNP ## ## [facility] [address] [place] [address] pbnp on 2018-08-24 Natriuretic peptide B mass 45 0-125 pg/mL Normal [facility] conc (d) ([place]) (000 00) Comment: Result Comment: NT-proBNP re sults of less than 300 pg/mL effectively rules out acute congestive h eart failure with 99% negative predictive value. Performed By: #### CBC, ADIF F, ANEU, DIMER #### [address] [address] #### BMP, GFR, TROP, PBNP ## ## [address] [address] dimer on 2018-08-24 Fibrin D-dimer FEU IA 206 0-230 ng/mL D-DU Normal 019 [facility] conc (Bld) [place] ([place]) ([address]34) Comment: Result Comment: The result o f the D-Dimer test should be evaluated in the context of all the clinical and laboratory data available. In those instances where the laboratory result does not agree with the clinical eval uation, additional tests should be performed accordingly. If the D-Dimer result is use d to exclude DVT or PE, the recommended cutoff value is less than 230 ng/mL. The D-Dimer result should not be used al one to rule in DVT/PE, but should be used in conjunction with a clinical pretest probability (PTP)assessment model to exc lude venous thromboembolism (VTE) in outpatients suspected of deep venous thrombosis (DVT) and pulmonary embolism (PE). Performed By: #### RFLU #### [address] [address] cbc on 2018-08-24 Erythrocyte distribution 13.3 11.5-14.5 % Normal 08-24 [facility] width Ratio (RBC) Fo undation ([place]) (16878) Comment: Performed By: #### CBC, ADIF F, ANEU, DIMER #### [place] [address] #### BMP, GFR, TROP, PBNP ## ## [place] [address] Hematocrit Volume 44.6 42.0-52.0 % Normal 08-24-2018 [facility] ([facility]) ([place]) ([address]37) Comment: Performed By: #### CBC, ADIF F, ANEU, DIMER #### [place] [address] #### BMP, GFR, TROP, PBNP ## ## [place] [address] Hemoglobin mass conc 15.1 14.0-18.0 G/dL Normal 9 [facility] ([place]) ([address]13) Comment: Performed By: #### CBC, ADIF F, ANEU, DIMER #### [place] [address] #### BMP, GFR, TROP, PBNP ## ## [place] [address] MCH Entitic mass (RBC) 30.2 27.0-31.2 pg Normal 019 [facility] ([place]) (0000 0) Comment: Performed By: #### CBC, ADIF F, ANEU, DIMER #### [place] [address] #### BMP, GFR, TROP, PBNP ## ## [place] [address] MCHC mass conc (RBC) 33.8 31.8-35.4 G/dL Normal 9 [facility] ([place]) (0000 0) Comment: Performed By: #### CBC, ADIF F, ANEU, DIMER #### [place] [address] #### BMP, GFR, TROP, PBNP ## ## [place] [address] MCV Entitic volume 89.2 80.0-94.0 fL Normal 08-24-2018 [facility] ([facility]) ([place]) (0000 0) Comment: Performed By: #### CBC, ADIF F, ANEU, DIMER #### [address] [address] #### BMP, GFR, TROP, PBNP ## ## [address] [address] Platelet mean volume 7.0 7.4-10.4 fL Low 9 [facility] Entitic volume (Bld) ([place]) ([address]66) Comment: Performed By: #### CBC, ADIF F, ANEU, DIMER #### [place] [address] #### BMP, GFR, TROP, PBNP ## ## [address] [address] Platelets #/vol (Bld) 291 130-400 10 3/mcL Normal 08-24-19 19 [facility] ([place]) (59245) Comment: Performed By: #### CBC, ADIF F, ANEU, DIMER #### [place] [address] #### BMP, GFR, TROP, PBNP ## ## [place] [address] RBC #/vol (Bld) 5.00 4.04-6.13 10 6/mcL Normal 08-24-2018 [facility] ([place]) (0000 0) Comment: Performed By: #### CBC, ADIF F, ANEU, DIMER #### [place] [address] #### BMP, GFR, TROP, PBNP ## ## [address] [address] WBC #/vol (Bld) 7.20 4.60-10.80 10 3/mcL Normal 08-24-2018 [facility] ([place]) (0000 0) Comment: Performed By: #### CBC, ADIF F, ANEU, DIMER #### [place] [address] #### BMP, GFR, TROP, PBNP ## ## [address] [address] bmp on 2018-08-24 Calcium mass conc 8.9 8.4-10.2 mg/dL Normal 08-24-2018 A [facility] ([place]) ([address]71) Comment: Performed By: #### CBC, ADIF F, ANEU, DIMER #### [place] [address] #### BMP, GFR, TROP, PBNP ## ## [place] [address] Chloride molar conc 104 98-107 mmol/L Normal 08-24-2018 [facility] ([place]) (0000 0) Comment: Performed By: #### CBC, ADIF F, ANEU, DIMER #### [place] [address] #### BMP, GFR, TROP, PBNP ## ## [place] [address] CO2 molar conc 30 23-31 mmol/L Normal 08-24-2018 [facility] ([place]) ([address]3343) Comment: Performed By: #### CBC, ADIF F, ANEU, DIMER #### [place] [address] #### BMP, GFR, TROP, PBNP ## ## [place] [address] Creatinine mass conc 1.25 0.70-1.30 mg/dL Normal 9 [facility] ([place]) (0000 0) Comment: Performed By: #### CBC, ADIF F, ANEU, DIMER #### [place] [address] #### BMP, GFR, TROP, PBNP ## ## [place] [address] Electrolyte Balance 7.0 mEq/L Normal 08-24-2018 [facility] ([place]) ([address]350) Comment: Performed By: #### CBC, ADIF F, ANEU, DIMER #### [place] [address] #### BMP, GFR, TROP, PBNP ## ## [address] [address] Glucose mass conc 95 80-115 mg/dL Normal 08-24-2018 A [facility] ([place]) ([address]772) Comment: Performed By: #### CBC, ADIF F, ANEU, DIMER #### [address] [address] #### BMP, GFR, TROP, PBNP ## ## [address] [address] Potassium molar conc 3.8 3.5-5.1 mmol/L Normal 9 [facility] ([place]) (0000 0) Comment: Performed By: #### CBC, ADIF F, ANEU, DIMER #### [place] [address] #### BMP, GFR, TROP, PBNP ## ## [address] [address] Sodium molar conc 141 136-145 mmol/L Normal 08-24-2018 A [facility] ([place]) ([address]) Comment: Performed By: #### CBC, ADIF F, ANEU, DIMER #### [place] [address] #### BMP, GFR, TROP, PBNP ## ## [address] [address] Urea nitrogen mass conc 20 7-18 mg/dL High 2018 [facility] ([place]) (57376) Comment: Performed By: #### CBC, ADIF F, ANEU, DIMER #### [place] [address] #### BMP, GFR, TROP, PBNP ## ## [address] [address] Urea nitrogen/Creatinine mass 16 7-27 ratio Normal 08-24-2018 [facility] ([place]) ([address]389) Comment: Performed By: #### CBC, ADIF F, ANEU, DIMER #### [place] [id number] #### BMP, GFR, TROP, PBNP ## ## [address] [address] .neuabs on Neutrophils #/vol 4.00 2.85-6.16 10 3/mcL Normal 08-24-2018 A [facility] [employer] ([facility] ([place]) ([address]36) Comment: Performed By: #### CBC, ADIF F, ANEU, DIMER #### [address] [address] #### BMP, GFR, TROP, PBNP ## ## [address] [address] .gfr on 2018-08-24 GFR Non- 59 ml/min/1.73sqm Normal 08-24-2018 [facility] ([place]) ([address]60) Comment: Result Comment: GFR Population mean for Afri can [place], Non- Americans Ages 20-29 = 116 mL/min/1.73 sq.m. Ages 30-39 = 107 mL/min/1.73 sq.m. Ages 40-49 = 99 mL/min/1.73 sq.m. Ages 50-59 = 93 mL/min/1.73 sq.m. Ages 60-69 = 85 mL/min/1.73 sq.m. Ages 70+ = 75 mL/min/1.73 sq .m. Chronic Kidney Disease: Less than 60 mL/min/1.73 square meters End Stage Renal Disease: Les s than 15 mL/min/1.73 square meters Performed By: #### CBC, ADIF F, ANEU, DIMER #### [address] [address] #### BMP, GFR, TROP, PBNP ## ## [place] [address] GFR 71 ml/min/1.73sqm Normal 07-28 [facility] ([place]) (0000 0) Comment: Result Comment: GFR Population mean for Afri can Andorran, Non- Americans Ages 20-29 = 116 mL/min/1.73 sq.m. Ages 30-39 = 107 mL/min/1.73 sq.m. Ages 40-49 = 99 mL/min/1.73 sq.m. Ages 50-59 = 93 mL/min/1.73 sq.m. Ages 60-69 = 85 mL/min/1.73 sq.m. Ages 70+ = 75 mL/min/1.73 sq .m. Chronic Kidney Disease: Less than 60 mL/min/1.73 square meters End Stage Renal Disease: Les s than 15 mL/min/1.73 square meters Performed By: #### CBC, ADIF F, ANEU, DIMER #### [address] [address] #### BMP, GFR, TROP, PBNP ## ## [address] [address] .auto diff on 08-24 Ammonia mass conc 0.80 0.15-1.00 10 3/mcL Normal 08-24-2018 A [facility] ([facility] ([place]) ([address]) Comment: Performed By: #### CBC, ADIF F, ANEU, DIMER #### [address] [address] #### BMP, GFR, TROP, PBNP ## ## [address] [address] Basophils #/vol (Bld) 0.00 0.00-0.19 10 3/mcL Normal 08-24-19 19 [facility] ([place]) (60058) Comment: Performed By: #### CBC, ADIF F, ANEU, DIMER #### [place] [address] #### BMP, GFR, TROP, PBNP ## ## [address] [address] Basophils/100 WBC (Bld) 0.4 0.0-2.5 % Normal 2018 [facility] ([place]) (0000 0) Comment: Performed By: #### CBC, ADIF F, ANEU, DIMER #### [address] [address] #### BMP, GFR, TROP, PBNP ## ## [address] [address] Eosinophils #/vol 0.20 0.00-0.40 10 3/mcL Normal 08-24-2018 [facility] ([place]) ([address]72) Comment: Performed By: #### CBC, ADIF F, ANEU, DIMER #### [address] [address] #### BMP, GFR, TROP, PBNP ## ## [address] [address] Eosinophils/100 WBC (Bld) 2.1 0.0-7.0 % Normal 07-28 [facility] ([place]) (0000 0) Comment: Performed By: #### CBC, ADIF F, ANEU, DIMER #### [place] [address] #### BMP, GFR, TROP, PBNP ## ## [address] [address] Lymphocytes #/vol 2.20 0.77-3.85 10 3/mcL Normal 08-24-2018 A [facility] ([facility] ([place]) ([address]) Comment: Performed By: #### CBC, ADIF F, ANEU, DIMER #### [place] [address] #### BMP, GFR, TROP, PBNP ## ## [address] [address] Lymphocytes/100 WBC (Bld) 30.4 10.0-50.0 % Normal 07-28 [facility] ([place]) ([address]44) Comment: Performed By: #### CBC, ADIF F, ANEU, DIMER #### [place] [address] #### BMP, GFR, TROP, PBNP ## ## [address] [address] Monocytes/100 WBC (Bld) 11.1 1.7-13.0 % Normal 2018 [facility] ([place]) (0000 0) Comment: Performed By: #### CBC, ADIF F, ANEU, DIMER #### [address] [address] #### BMP, GFR, TROP, PBNP ## ## [address] [address] Neutrophils/100 WBC (Bld) 56.0 37.0-80.0 % Normal 07-28 [facility] ([place]) ([address]047) Comment: Performed By: #### CBC, ADIF F, ANEU, DIMER #### [address] [address] #### BMP, GFR, TROP, PBNP ## ## [place] [address] respid on 2017-10-24 9 Adenovirus Not Detected Not Detected Normal 11-11-2017 [facility] ([place]) (0000 0) Comment: Order Comment: Order added b y [email or web address] Performed By: #### RESPID ## ## [place] [address] Bordetella Not Detected Not Detected Normal 11-11-2017 [facility] ([place]) ([id number]) Comment: Order Comment: Order added b y [email or web address] Performed By: #### RESPID ## ## [place] [address] Bordetella Pertussis Not Detected Not Detected Normal [facility] ([place]) (05406) Comment: Order Comment: Order added b y [email or web address] Performed By: #### RESPID ## ## [place] [address] Chlamydophila Not Detected Not Detected Normal 11-11-2017 [facility] pneumoniae Foundatio n ([place]) (76042) Comment: Order Comment: Order added b y [email or web address] Performed By: #### RESPID ## ## [place] [address] Coronavirus 229E Not Detected Not Detected Normal 018 [facility] ([place]) (61526) Comment: Order Comment: Order added b y [email or web address] Performed By: #### RESPID ## ## [facility] [address] [place] [address] Coronavirus HKU1 Not Detected Not Detected Normal 018 [facility] ([place]) (12399) Comment: Order Comment: Order added b y [email or web address] Performed By: #### RESPID ## ## [place] [address] Coronavirus NL63 Not Detected Not Detected Normal [facility] ([place]) (03656) Comment: Order Comment: Order added b y [email or web address] Performed By: #### RESPID ## ## [place] [address] Coronavirus OC43 Not Detected Not Detected Normal [facility] ([place]) (94508) Comment: Order Comment: Order added b y [email or web address] Performed By: #### RESPID ## ## [address] [address] Human Metapneumovirus Not Detected Not Detected Normal [facility] ([place]) (85955) Comment: Order Comment: Order added b y [email or web address] Performed By: #### RESPID ## ## [place] [address] Influenza A Not Detected Not Detected Normal 11-11-2017 A [facility] ([place]) (0000 0) Comment: Order Comment: Order added b y [email or web address]_NEGAB Performed By: #### RESPID ## ## [address] [address] Influenza B Not Detected Not Detected Normal 11-11-2017 A [facility] ([place]) (0000 0) Comment: Order Comment: Order added b y [email or web address] Performed By: #### RESPID ## ## [place] [address] Mycoplasma Not Detected Not Detected Normal 11-11-2017 [facility] ([place]) (97722) Comment: Order Comment: Order added b y [email or web address] Performed By: #### RESPID ## ## [facility] [address] [place] [address] Parainfluenza 1 Not Detected Not Detected Normal 11-12-19 18 [facility] ([place]) (94149) Comment: Order Comment: Order added b y [email or web address] Performed By: #### RESPID ## ## [facility] [address] [place] [address] Parainfluenza 2 Not Detected Not Detected Normal 11-12-19 18 [facility] ([place]) (61971) Comment: Order Comment: Order added b y [email or web address] Performed By: #### RESPID ## ## [place] [address] Parainfluenza 3 Not Detected Not Detected Normal 11-12-19 18 [facility] ([place]) (55334) Comment: Order Comment: Order added b y [email or web address] Performed By: #### RESPID ## ## [facility] [address] [place] [address] Parainfluenza 4 Not Detected Not Detected Normal 11-12-19 18 [facility] ([place]) (59170) Comment: Order Comment: Order added b y [email or web address] Performed By: #### RESPID ## ## [address] [address] Respiratory Not Detected Not Detected Normal 11-11-2017 [facility] ([place] (12843) Comment: Order Comment: Order added b y [email or web address] Performed By: #### RESPID ## ## [facility] [address] [place] [address] Rhinovirus/Enterovirus Not Detected Not Detected Normal 0 11-11-2017 [facility] ([place]) (42581) Comment: Order Comment: Order added b y [email or web address] Performed By: #### RESPID ## ## [address] [address] xr chest 1 view on 2017-11-10 XR CHEST 1 VIEW ORIGINAL Normal 11-10-2017 [facility] XR CHEST 1 VIEW Riki shankar ([place]) (34951) Clinical Statement: cough. COMPARISON: 02/11/2016 FINDINGS: There is airspace disease and elevation of the RIGHT hemidiaphragm unchanged from the prior exam. No pleural fluid or pneumothorax. The heart size is within normal limits. There is no visible rib fracture or aggressive osseous lesion. IMPRESSION: No acute cardiop ulmonary abnormality. Scarring at the RIGHT lung base, unchanged from 2016. Interpreted By: Lane Sanabria Preliminary Report By: Lane Sanabria Electronically Signed By: Lane Sanabria Dictated Date: 11/10/2017 1:26:28 PM Prelim Date: 11/10/2017 1:26:28 PM Sign Date: 11/10/2017 1:31:49 PM rflu on 2017-11-10 RFLU . Normal 11-10-2017 [facility] MICRO - Microbiology [facility] ([place]) ([id number]) PROCEDURE: Rapid Influenza A+B Screen w Cult if Ind [*1] SOURCE: Nasopharyngeal BODY SITE: COLLECTED DATE/TIME: 11/11/19 13:04 EDT RECEIVED DATE/TIME: 11/10/2017 13:49 EDT START DATE/TIME: 11/10/2017 13:49 EDT FREE TEXT SOURCE: FINAL REPORTS Final Report [] Verified Date/Time/Personnel: 11/10/2017 13:49 EDT Specimen is negative for the presence of influenza A antigen. . Specimen is negative for the presence of influenza B antigen. . Inadequate specimen collection, improper sample handling and/or low levels of viral shedding may yield a false-negative result. . The optimal specimen type for the Rapid Flu test is a nasopharyngeal wash/aspirate or nasopharyngeal swab. All negative rapid tests for Flu A and Flu B will be confirmed with a Respiratory Id Panel by PCR. . Assay method employs immunofluorescence technology. Performing Locations *1: This test was performed at: [address], [address] [place] [address] Comment: Performed By: #### RFLU #### [place] [address] replaced document: [facility] ecg observati ons on 2017-03-09 EKG QRS axis -22 deg 03-09-2017 - Pulm onary 03-09-2017 [facility] [place] (05851) electrocardiogram Sinus Invalid 03-09-2017 - [facility] interpretation Bradycardia - Interpretation 2016 [facility] Nonspecific Code (84775) T-abnormality. ABNORMAL GE use only - for 419 ms Invalid 03-09-2017 - [facility] [employer] import when Interpretation Heart Group terms are not Code (72656 ) otherwise specified Interpretation Sinus 03-09-2017 - Pu lmonary Bradycardia - 03-09-2017 Medic ine of Nonspecific [facility] T-abnormality. (4469 1) ABNORMAL P [place] 70 deg 03-09-2017 - Pulmona ry 03-09-2017 [facility] [place] (84338) P wave axis, 70 deg Invalid 03-09-2017 - [facility] electrocardiogram Interpretation 017 [facility] Code (19799) [place] Interval 150 ms 03-09-2017 - Pulmo nary 03-09-2017 [facility] [place] (26845) [place] interval, 150 ms Invalid 03-09-2017 - [facility] electrocardiogram Interpretation 017 [facility] Code (04979) Pulse (Heart Rate) 59 BPM /min Invalid 03-09-2017 - [place] Interpretation 03-09-2017 Hear t Group Code (88306) QRS axis, -22 deg Invalid 03-09-2017 - [place] electrocardiogram Interpretation 017 [facility] Code (05851) QRS Duration 92 ms 03-09-2017 - Pulm onary 03-09-2017 [facility] (98199) QRS duration, 92 ms Invalid 03-09-2017 - [facility] electrocardiogram Interpretation 017 [facility] Code (59691) QT Interval new path ms 03-09-2017 - Pul monary 03-09-2017 [facility] (63704) QT interval, new path ms Invalid 03-09-2017 - [place] electrocardiogram Interpretation 017 [facility] Code (27376) QTc [place] 419 ms 03-09-2017 - Pulmon elpidio 03-09-2017 [facility] [place] (30328) T [place] 1 deg 03-09-2017 - Pulmona ry 03-09-2017 [facility] (47660) T wave axis, 1 deg Invalid 03-09-2017 - [facility] electrocardiogram Interpretation 017 [facility] Code (01052) office visit: jordy hawkins n 2017-03-09 Documentation of Done Invalid Interpretation 03-09-2017 - [facility] current medications Code 03-09-2017 Group (20206) (procedure) Fall risk assessment No Invalid Interpretat ion 03-09-2017 - [place] [facility] Code 03-09-2017 Group (44 691) Protein mass conc Done 03-09-2017 - Pulmonary 03-09-2017 [facility] [place] (4 [id number]) lab report: prothrombin time w/inr on 2017-03-09 Coagulation 13.5 11.7-14.9 Invalid 03-09-2017 - Pulmo nary tissue factor SECONDS Interpretation 03-09-2017 [facility] induced in Code [facility] platelet poor (70033 ) plasma INR Coag 1.1 {INR 03-09-2017 - Pulmona ry RelTime (PPP) } 03-09-2017 [facility] [place] (78537) INR in blood by 1.1 {INR Invalid 03-09-2017 - P ulmonary coagulation } Interpretation 03-09-2017 Me dicine of Code [place] (87921) lab report: cbc-complete blood cnt no di ff on 2017-03-09 Erythrocyte 41.8 35.1-43.9 fL 03-09-2017 - Pulmo nary distribution 03-09-2017 Medici ne of width Ratio [place] (RBC) (60422) Erythrocyte 12.8 11.6-14.6 % 03-09-2017 - Pulmo nary distribution 03-09-2017 Medici ne of width Ratio [facility] (RBC) (40368) Erythrocytes 5.21 4.6-6.2 10*6/u Invalid 03-09-2017 - Pulm onary (RBC) L Interpretation 03-09-2017 Medi cine of Code [place] (88694) Hematocrit (HCT) 46.6 40-54 % Invalid 03-09-2017 - Pulmonary Interpretation 03-09-2017 Medi cine of Code [place] (42955) Hematocrit 46.6 40-54 % 03-09-2017 - Pulmon elpidio Volume Fraction 03-09-2017 Med icine of (Bld) [facility] (38447) Hemoglobin (HGB) 15.7 13.0-16.5 g/dL Invalid 03-09-2017 - Pulmonary Interpretation 03-09-2017 Medi cine of Code [place] (20611) MCH 30.1 27.0-32.0 pg Invalid 03-09-2017 - Pulmona ry Interpretation 03-09-2017 Medi cine of Code [place] (03920) MCH Entitic mass 30.1 27.0-32.0 pg 03-09-2017 - Pulmonary (RBC) 03-09-2017 [facility] [place] (85891) MCHC 33.7 32-36 Invalid 03-09-2017 - Pulmona ry G/GL Interpretation 03-09-2017 Medi cine of Code [place] (94236) MCHC mass conc 33.7 32-36 03-09-2017 - Pu lmonary (RBC) G/GL 03-09-2017 [facility] [place] (13901) MCV 89.4 80-94 fL Invalid 03-09-2017 - Pulmona ry Interpretation 03-09-2017 Medi cine of Code [place] (03029) MCV Entitic 89.4 80-94 fL 03-09-2017 - Pulmo nary volume (RBC) 03-09-2017 Medici ne of [place] (30196) Platelet mean 9.4 6.2-12.0 fL 03-09-2017 - Pul monary volume Entitic 03-09-2017 Medi cine of volume (Bld) [facility] (73282) Platelets 259 150-450 10*3/m Invalid 03-09-2017 - Pulmona ry m3 Interpretation 03-09-2017 Medi cine of Code [place] (07999) Platelets #/vol 259 150-450 10*3/m 03-09-2017 - P ulmonary (Bld) m3 03-09-2017 [facility] [place] (20928) PMV by 9.4 6.2-12.0 fL Invalid 03-09-2017 - Pulmona ry Yo-Eduardo Interpretation 03-09-2017 Med icine of Code [place] (00556) RBC #/vol (Bld) 5.21 4.6-6.2 10*6/u 03-09-2017 - P ulmonary L 03-09-2017 [facility] [place] (31441) RDW-CA 12.8 11.6-14.6 % Invalid 03-09-2017 - Pulmona ry Interpretation 03-09-2017 Medi cine of Code [place] (72895) red blood cell 41.8 35.1-43.9 fL Invalid 03-09-2017 - Pu lmonary distribution Interpretation 03-09-2017 M edicine of width, size Code [facility] density (12473) WBC #/vol (Bld) 5.1 4.4-11.0 10*9/L 03-09-2017 - P ulmonary 03-09-2017 [facility] [place] (61556) WBC (Leukocytes) 5.1 4.4-11.0 10*9/L Invalid 03-09-2017 - Pulmonary Interpretation 03-09-2017 [facility]i [facility] of Code [place] ([id number]) lab report: basic metabolic profile (bmp ) on 2017-03-09 Anion gap 5 5-15 mmol/L Invalid 03-09-2017 - Pulmona ry Interpretation 03-09-2017 Medi cine of Code [place] ([id number]) Anion gap molar 5 5-15 mmol/L 03-09-2017 - P ulmonary conc 03-09-2017 [facility] ([id number]) BUN/Creatinine 12.2 RATIO 10-20 Invalid 03-09-2017 - P ulmonary Ratio Interpretation 03-09-2017 Medi [facility]ine of Code [place] (21040) Calcium 8.8 8.5-10.1 mg/dL Invalid 03-09-2017 - Pulmona ry Interpretation 03-09-2017 Medi cine of Code [place] (00021) Chloride 105 98-107 mmol/L Invalid 03-09-2017 - Pulmona ry Interpretation 03-09-2017 Medi cine of Code [place] (56089) CO2 30.0 21.0-32. mmol/L Invalid 03-09-2017 - Pulmona ry 0 Interpretation 03-09-2017 Medi cine of Code [place] (73346) CO2 ppres 30.0 21.0-32. mmol/L 03-09-2017 - Pulmona ry (BldV) 0 03-09-2017 [facility] [place] (88253) Creatinine 1.23 0.70-1.3 mg/dL Invalid 03-09-2017 - Pulmon elpidio 0 Interpretation 03-09-2017 Medi cine of Code [place] (01156) eGFR 64 >60 mL/min Invalid 03-09-2017 - Pulmona ry (non-black) Interpretation 03-09-2017 Me dicine of Code [place] (15765) eGFR 77 >60 mL/min Invalid 03-09-2017 - Pulmona ry (non-black) Interpretation 03-09-2017 Me dicine of Code [place] (00409) EST GFR - AA 77 >60 mL/min 03-09-2017 - Pulm onary 03-09-2017 [facility] [place] (67721) Glucose 130 70-110 mg/dL High 03-09-2017 - Pulmona ry 03-09-2017 [facility] (92012) Glucose mass 130 70-110 mg/dL High 03-09-2017 - Pulm onary conc 03-09-2017 [facility] (74397) Potassium 3.9 3.5-5.1 mmol/L Invalid 03-09-2017 - Pulmona ry Interpretation 03-09-2017 [facility]i [facility]ine of Code [place] (09962) Sodium 140 136-145 mmol/L Invalid 03-09-2017 - Pulmona ry Interpretation 03-09-2017 [facility]i [facility] of Code [place] (33725) Urea nitrogen 15 7-18 mg/dL Invalid 03-09-2017 - Pul monary Interpretation 03-09-2017 [facility]i [facility]ine of Code [place] (18574) office visit on 01-25-21 Documentation of Done Invalid 10-13-2016 - [facility] current medications Interpretation Code 10-13-2016 Group (33815) (procedure) Fall risk No Invalid 10-13-2016 - [facility] assessment Interpretation Code 7 Group (96354) Protein mass conc yes 10-13-2016 - Pulmonary 10-13-2016 [facility] [place] (88745) Smoking cessation yes Invalid 10-13-2016 - [facility] education Interpretation Code 10-13-2016 Group (27673) (procedure) Tobacco smoking Current every 10-13-2016 - Pulmonary status NHIS day smoker 10-13-2016 [facility] [place] (28086) Tobacco use CPHS Current every Invalid 7 - [place] [facility] day smoker Interpretation Code 7 Group (79539) lab report: liver profile on 2016-10-13 Alanine 19 12-78 U/L Invalid 10-13-2016 - [facility] aminotransferase Interpretation 10-14-19 17 Group (33599) (ALT) Code Albumin 3.7 3.4-5.0 g/dL Invalid 10-13-2016 - [place] [facility] Interpretation 10-13-2016 Grou p (43423) Code Alkaline phosphatase 77 45-117 U/L Invalid 7 - [facility] (ALP) Interpretation 10-13-2016 Grou p (26036) Code ALP enzyme act/vol 77 45-117 U/L 10-13-2016 - Pulmonary (Bld) 10-13-2016 [facility] (49206) Aspartate 12 15-37 U/L Low 10-13-2016 - [place] [facility] aminotransferase 10-13-2016 Gr oup (15547) (AST) Bilirubin (direct) 0.15 0.00-0.30 mg/dL Invalid 10-13-2016 - [place] [facility] Interpretation 10-13-2016 Grou p (29493) Code Bilirubin (total) 0.60 0.20-1.00 mg/dL Invalid 10-13-2016 - [place] [facility] Interpretation 10-13-2016 Grou p (04002) Code Globulin 3.8 2.3-3.5 g/dL High 10-13-2016 - [place] [facility] 10-13-2016 Group (44 691) Globulin mass conc 3.8 2.3-3.5 g/dL High 10-13-2016 - Pulmonary (S) 10-13-2016 [facility] [place] (69620) Protein 7.5 6.4-8.2 g/dL Invalid 10-13-2016 - [facility] Interpretation 10-13-2016 Grou p (27387) Code lab report: lipid profile on 2016-10-13 Cholesterol 77 200 mg/dL Invalid 10-13-2016 - [place] [facility] Interpretation Code 10-13-2016 Group (73009) HDL Cholesterol 40 mg/dL Invalid 10-13-2016 - [place] [facility] Interpretation Code 10-13-2016 Group (61623) LDL Cholesterol 29 0-130 mg/dL Invalid 03-21-2017 - [place] [facility] Interpretation Code 10-13-2016 Group (36272) Lipoprotein.pre-bet 8 5-40 mg/dL 10-13-2016 - Pulmonary a mass conc 10-13-2016 [facility] [place] (4 4691) Triglyceride 39 mg/dL Invalid 10-13-2016 - [facility] Interpretation Code 10-13-2016 Group (37589) very low density 8 5-40 mg/dL Invalid 10-13-2016 - [place] [facility] lipoproteins Interpretation Code 017 Group (54569) clinical lists update: preload on 2016-10-09 Left ventricular 65 % Invalid Interpretation 10-09-2016 - [place] [facility] Ejection fraction Code 10-09-2016 [facility] (30609) office visit: emphysema on 2016-09-14 Dietary management yes Invalid Interpretatio n 09-14-2016 - [place] [facility] education, guidance, Code 7 Group (37353) and counseling (procedure) Tobacco smoking Never Invalid Interpretation 0 09-14-2016 - [place] [facility] status NHIS Code 09-14-2016 Group ( 93864) replaced document: [place] ecg observati ons on 2016-01-15 electrocardiogram Sinus Bradycardia Invalid 12-25 - [place] interpretation -Old anterior Interpretation 2015 Heart infarct. - Code Group Negative T-waves (44 231) -Possible Anterolateral ischemia. ABNORMAL GE use only - for 435 ms Invalid 01-15-2016 - [place] [employer] import when Interpretation Heart terms are not Code Group otherwise specified (47273) P wave axis, 74 deg Invalid 01-15-2016 - [facility] [facility] electrocardiogram Interpretation 016 Heart Code Group (57945) [place] interval, 150 ms Invalid 01-15-2016 - [facility] electrocardiogram Interpretation 016 [facility] Code Group (25525) Pulse (Heart Rate) 58 BPM /min Invalid 01-15-2016 - [place] Interpretation 01-15-2016 Hear t Code Group (31343) QRS axis, -1 deg Invalid 01-15-2016 - [place] electrocardiogram Interpretation 016 Heart Code Group (43218) QRS duration, 85 ms Invalid 01-15-2016 - [place] electrocardiogram Interpretation 016 [facility] (88512) QT interval, new path ms Invalid 01-15-2016 - [place] electrocardiogram Interpretation 016 [facility] (82637) T wave axis, 1 deg Invalid 01-15-2016 - [facility] electrocardiogram Interpretation 016 Heart Code Group (56095) Vital Signs Vital Sign Description Value / Unit Date Location The following section is limited to 5 en tries per type and includes entries from the following time range: 20160914 - [id number] 5. BMI (Body Mass Index) 25.15 kg/m2 03-09-2017 - 03-09-2017 [facility] (19164) BMI (Body Mass Index) 24.98 kg/m2 10-13-2016 - 10-13-2016 [facility] (60187) Body Temperature 96.6 [degF] 09-14-2016 - 09-14-2016 [facility] (87597) Body Temperature 96.62 [degF] 09-14-2016 - 09-14-2016 [facility] (69009) BP Diastolic 90 mm[Hg] 03-09-2017 - 03-09-2017 [facility] (42140) BP Diastolic 70 mm[Hg] 10-13-2016 - 10-13-2016 [facility] (91367) BP Systolic 128 mm[Hg] 03-09-2017 - 03-09-2017 [facility] (43912) BP Systolic 104 mm[Hg] 10-13-2016 - 10-13-2016 [facility] (55691) BSA (Body Surface Area) 1.87 m2 09-14-2016 - 09-14-2016 [facility] (92109) Heart rate 59 /min 03-09-2017 - 03-09-2017 Pulmonar y [facility] (54544) Height 172.72 cm 03-09-2017 - 03-09-2017 [facility] (79462) Height 172.72 cm 10-13-2016 - 10-13-2016 [facility] (44565) Height 172.72 cm 09-14-2016 - 09-14-2016 [facility] (96395) Pulse (Heart Rate) 59 /min 03-09-2017 - 03-09-2017 [facility] (81102) Pulse (Heart Rate) 64 /min 10-13-2016 - 10-13-2016 [facility] (31331) Respiratory Rate 20 /min 03-09-2017 - 03-09-2017 [facility] (06265) Respiratory Rate 20 /min 10-13-2016 - 10-13-2016 [facility] (47336) Weight 75.03 kg 03-09-2017 - 03-09-2017 [facility] (69301) Weight 74.53 kg 10-13-2016 - 10-13-2016 [facility] (40734) Weight 73.64 kg 09-14-2016 - 09-14-2016 [facility] (57872) Encounters Date Type Reason Provider Location 08-24-2018 - Emergency department CHANTAL ROBINASAJI Ryan ty:B 08-24-2018 patient visit 11-10-2017 - Emergency department GENNARO CITLALI JAS DAWN Facility:B 11-10-2017 patient visit Procedures Procedure Name Date Provider Location *BMP 03-08-2017 - Lionel Alex MD [facility]monary Medi [facility] of 03-09-2017 [place] ([id number]) CBC W Auto Differential panel 03-08-2017 - Lionel Alex MD Pulmonary Medicine of - Blood 03-09-2017 [place] (59046) Chest x-ray 03-08-2017 - Lionel Alex MD [facility]monary Medi cine of 03-09-2017 [facility] (05780) Coagulation factor 03-08-2017 - Lionel Alex MD Pulmonary M edicine of induced.INR assay in platelet 03-09-2017 [place] (52580) poor plasma *Hepatic Function Panel 10-13-2016 - Lionel Alex MD [facility] 10-14-2016 ([id number]) Follow Up Appt 6 months 10-13-2016 - MD [facility] 10-13-2016 ([id number]) Lipid panel [AGGREGATE] 10-13-2016 - [facility] 10-14-2016 (56771) MMM 10-13-2016 - [facility] 10-13-2016 (44599) Dietary management education, 09-14-2016 [facility] of guidance, and counseling 09-14-2016 [place] (96639) 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 [facility] 04-17-2016 ([id number]) Follow Up Appt 6 months 04-17-2016 - Job Renae 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 CARE SURGEON-C [facility] 04-17-2016 ([id number]) *Hepatic Function Panel 01-15-2016 - Lionel Alex MD [facility] 02-12-2016 ([id number]) Echocardiography 01-15-2016 - Lionel Alex MD [facility] 04-20-2016 ([id number]) Electrocardiogram, complete 01-15-2016 - Lionel Alex MD [facility] 03-27-2016 ([id number]) Follow Up Appt 3 months 01-15-2016 - Lionel Alex MD [facility] 03-27-2016 (76131) Lipid panel [AGGREGATE] 01-15-2016 - Lionel Alex MD [facility] 02-12-2016 ([id number]) MMM 01-15-2016 - Lionel Alex MD [facility] 03-27-2016 ([id number]) 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 01-15-2016 - Lionel Alex MD [facility] 01-16-2016 (38022) Placement of stent in 01-10-2016 [facility]monary Medicine of coronary artery [place] (45245) Plan of Treatment Plan Description Date Location *Hepatic Function Panel *Hepatic Function Panel 04-16-2017 - [facility] 10-15-2016 ([id number]) *Lipid Profile CC PCP *Lipid Profile CC PCP 04-16-2017 - [facility] 10-15-2016 ([id number]) Appointment Appointment 04-13-2017 - [facility] 04-13-2017 ([id number]) Appointment Appointment 03-09-2017 - [facility] 03-09-2017 (07345) *BMP *BMP 03-08-2017 - [facility] 03-09-2017 (81289) *CBC without Diff *CBC without Diff 03-08-2017 - [facility] 03-09-2017 ([id number]) X-Ray, Chest, PA & Lateral X-Ray, Chest, PA & 03-08-2017 - [facility] Lateral 03-09-2017 ([id number]) *PT/INR *PT/INR 03-08-2017 - [facility] 03-09-2017 ([id number]) EKG (In office) EKG (In office) 03-08-2017 - [facility] 03-08-2017 (74660) Left Heart Cath Left Heart Cath 03-08-2017 - [facility] 03-10-2017 ([id number]) Nuclear stress test Nuclear stress test 03-02-2017 - [facility] -exercise -exercise 03-02-2017 (87992) Nuclear stress test Nuclear stress test 02-26-2017 - [facility] -exercise -exercise 02-26-2017 (59703) Complete sleep workup Complete sleep workup 10-16-2016 - [facility] (PSG,CPAP as indicated) & (PSG,CPAP as indicated) & 10-16-2016 (96740) Follow up Follow up *Hepatic Function Panel *Hepatic Function Panel 10-13-2016 - [facility] 10-14-2016 ([id number]) Follow Up Appt 6 months Follow Up Appt 6 months 10-13-2016 - [facility] 10-13-2016 (22845) *Lipid Profile CC PCP *Lipid Profile CC PCP 10-13-2016 - [facility] 10-14-2016 (07770) MMM MMM 10-13-2016 - [facility] 10-13-2016 (62626) Complete sleep workup Complete sleep workup 09-14-2016 - [facility] (PSG,CPAP as indicated) & (PSG,CPAP as indicated) & 09-14-2016 (67624) Follow up Follow up DMB DMB 09-14-2016 - [facility] 09-14-2016 (76322) Follow Up Appt 3 months Follow Up Appt 3 months 09-14-2016 - [facility] 09-14-2016 ([id number]) Pulmonary Function Test - Pulmonary Function Test - 09-14-2016 - [facility] complete complete 09-14-2016 ([id number]) Pulmonary stress testing; Pulmonary stress testing; 09-14-2016 - [facility] simple (eg, 6-minute walk) simple (eg, 6-minute 09-14-2016 (01603) walk) Titration with Follow up Titration with Follow up 09-14-2016 - [facility] (pt not on cpap) (pt not on cpap) 09-14-2016 (88158) *Hepatic Function Panel *Hepatic Function Panel 08-17-2016 - [facility] 02-20-2016 ([id number]) *Lipid Profile CC PCP *Lipid Profile CC PCP 08-17-2016 - [facility] 02-20-2016 (23212) COUNSELING SERVICES DIRECTOR COUNSELING SERVICES DIRECTOR 04-17-2016 - [facility] 04-17-2016 ([id number]) Follow Up Appt 6 months Follow Up Appt 6 months 04-17-2016 - [facility] 04-17-2016 ([id number]) *Hepatic Function Panel *Hepatic Function Panel 01-15-2016 - [facility] 02-12-2016 ([id number]) Cardiac Rehab [facility] Cardiac Rehab [facility] 01-15-2016 - [facility] [address], [place], [address] [address], [place], [address] 01-15-2016 ([id number]) Echocardiogram (complete) Echocardiogram (complete) 01-15-2016 - [facility] 04-20-2016 ([id number]) EKG (In office) EKG (In office) 01-15-2016 - [facility] 03-27-2016 ([id number]) Follow Up Appt 3 months Follow Up Appt 3 months 01-15-2016 - [facility] 03-27-2016 ([id number]) *Lipid Profile CC PCP *Lipid Profile CC PCP 01-15-2016 - [facility] 02-12-2016 ([id number]) MMM MMM 01-15-2016 - [facility] 03-27-2016 ([id number]) Patient education no information [facility] ([id number]) Payers Payer Name Policy Number [facility] [employer] [id number] [facility] ([place]) ([id number]) [employer] [id number] [facility] ([place]) ([id number]) [email or web address] [id number] [facility] ([place] ([id number]) [id number] [facility] [place] ([id number]) [id number] [facility] [place] ([id number]) Summary Purpose Family History No Family History Records Found Advance Directives No Advanced Directives Records Found Additional Source Comments FOR RECORDS PERTAINING TO PATIENTS WHO ARE OR HAVE BEEN ENROLLED IN A CHEMICAL DEPENDENCY/SUBSTANCE ABUSE PROGRAM, SOME INFORMATION MAY BE OMITTED. This clinical summary was aggregated from multiple sources. Caution should be exercised in using it in the provision of clinical care. This summary normalizes information from multiple sources, and as a consequence, information in this document may materially changethe coding, format and clinical context of patient data. In addition, data may be omittedin some cases. CLINICAL DECISIONS SHOULD BE BASED ON THE PRIMARY CLINICAL RECORDS. [facility] provides no warranty or guarantee of the accuracy or completeness of information in this document. UNRECOGNIZED CONTENT PROVIDED BELOW FOR UNRECOGNIZED SECTION No Status Records Found UNRECOGNIZED CONTENT PROVIDED BELOW FOR UNRECOGNIZED SECTION INFORMATION SOURCE DATE CREATED AUTHOR AUTHOR'S ORGANIZATIO N 09/08/2018 [facility] ([place])
== END | disposition home or self-care (01) ==
LOC: PSN 13:15
PROVIDERS: Family Provider Internal Medicine; PCP Internal Medicine; Referring Provider Nurse Practitioner Acute Care; Visit Provider Nurse Practitioner Acute Care
DX: J44.9 Chronic obstructive pulmonary disease, unspecified (principal)
CPT/HCPCS: 94060; 94726; 94729

== ENCOUNTER → 2020-01-17 | Outpatient (CLI) | payer BC, SELFPAY ==
[2020-01-17 09:20] VITALS: BMI 24.6
[2020-01-17 13:22] LABS: Cholesterol 78 mg/dL (200); High Density Lipoprotein 37 mg/dL; Triglycerides 50 mg/dL; Very Low Density Lipoprotein 10 mg/dL (5-40)
== END | disposition home or self-care (01) ==
LOC: BIMLAB 09:39
PROVIDERS: PCP Internal Medicine; Referring Provider Internal Medicine; Visit Provider Internal Medicine
DX: I10 Essential (primary) hypertension (principal)
CPT/HCPCS: 36415; 80061

== ENCOUNTER → 2020-08-23 10:17 | Outpatient (CLI) | payer MEDICAID, SELFPAY ==
[2020-08-23 09:48] VITALS: BMI 21.9
[2020-08-23 13:25] LABS: ALB/GLOB Ratio 1.1 RATIO (0.9-2.4); AST(SGOT) 13 U/L (15-37); Alanine Aminotransfer ALT/SGPT 23 U/L (16-61); Alkaline Phosphatase 88 U/L (45-117); Anion Gap 8 (5-15); BUN 19 mg/dL (7-18); BUN/Creat Ratio 13.4 RATIO (10-20); Calcium,Total 9.4 mg/dL (8.5-10.1); Chloride 106 mmol/L (98-107); Creatinine, Serum 1.42 mg/dL (0.70-1.30); EST Glomerular Filtration Rate 54 mL/min (>60); Est Glom Filt Rate - Afr Amer 65 mL/min (>60); Globulin 3.6 g/dL (2.2-4.2); Glucose 175 mg/dL (74-106); Potassium 3.1 mmol/L (3.5-5.1); Protein, Total 7.6 g/dL (6.4-8.2); Sodium Level 142 mmol/L (136-145)
== END ==
PROVIDERS: PCP Internal Medicine; Referring Provider Internal Medicine; Visit Provider Internal Medicine
DX: I10 Essential (primary) hypertension (principal)
CPT/HCPCS: 36415; 80053

== ENCOUNTER → 2020-09-18 11:22 | Outpatient (CLI) | payer MEDICAID, SELFPAY ==
[2020-08-23 09:48] VITALS: BMI 21.9
[2020-09-18 12:53] LABS: Hemoglobin A1c 6.2 % (3.8-5.6)
[2020-09-18 13:09] LABS: Anion Gap 8 (5-15); BUN 25 mg/dL (7-18); BUN/Creat Ratio 15.2 RATIO (10-20); Calcium,Total 9.1 mg/dL (8.5-10.1); Chloride 105 mmol/L (98-107); Creatinine, Serum 1.64 mg/dL (0.70-1.30); EST Glomerular Filtration Rate 45 mL/min (>60); Est Glom Filt Rate - Afr Amer 55 mL/min (>60); Glucose 164 mg/dL (74-106); Potassium 3.7 mmol/L (3.5-5.1); Sodium Level 140 mmol/L (136-145)
== END ==
PROVIDERS: PCP Internal Medicine; Referring Provider Internal Medicine; Visit Provider Internal Medicine
DX: E87.6 Hypokalemia (principal); R73.9 Hyperglycemia, unspecified
CPT/HCPCS: 36415; 80048; 83036

== ENCOUNTER → 2020-09-23 15:33 | Outpatient (CLI) | payer MEDICAID, SELFPAY ==
[2020-09-23 18:00] LABS: Erythrocyte Sedimentation Rate 6 mm/hr (0-20)
[2020-09-23 18:12] LABS: Vitamin B12 465 pg/mL (211-911)
[2020-09-23 18:15] LABS: T4 Free Direct 1.38 ng/dL (0.76-1.46); Thyroid Stim Hormone (TSH) 0.49 uIU/mL (0.358-3.74)
== END ==
PROVIDERS: PCP Internal Medicine; Visit Provider Internal Medicine
DX: F32.9 Major depressive disorder, single episode, unspecified (principal); F41.9 Anxiety disorder, unspecified; R63.4 Abnormal weight loss
CPT/HCPCS: 36415; 82607; 84439; 84443; 85652

== ENCOUNTER → 2020-10-31 16:59 | Outpatient (CLI) | payer MEDICAID, SELFPAY ==
[2020-10-23 10:43] VITALS: BMI 20.9
[2020-10-28 14:04] VITALS: BMI 19.9
--- NOTE | 2020-10-31 17:17 | CT_ITS ---
STUDY: CT CHEST WITHOUT CONTRAST- LOW DOSE SCREENING PROTOCOL REASON FOR EXAM: Male, 65 years old. Current smoker. 20 pack per year history. No current symptoms of lung cancer or pulmonary infection. Shared decision-making with referring PCP documented in patient''s record. RADIATION DOSAGE (If Supplied By Facility): CTDIvol = ( 2.01 ) mGy, DLP = ( 73.74 ) mGycm TECHNIQUE: Low dose screening CT examination performed from the base of the neck to the upper abdomen. Sagittal and coronal reformatted images performed. Sagittal and coronal MIP images provided. The measurements provided are average, rounded measurements per ACR guidelines. COMPARISON: 11/29/2019 FINDINGS: Moderate emphysematous changes. No noncalcified nodule or mass. There is no demonstrated pleural abnormality. Normal heart and pericardium. There are calcifications of the coronary arteries. Normal mediastinum. Normal hilar regions. Normal unenhanced pulmonary arteries. Normal aorta arch and descending thoracic aorta. Normal osseous structures. There is no demonstrated abnormality of the visualized upper abdomen. CT/Low Dose CT Lung Screening IMPRESSION: 1. No significant indeterminate incidental findings requiring additional imaging. 2. Incidental findings include moderate emphysema. ASSESSMENT CATEGORY: LungRADS 1 - Negative. Continue annual screening with LDCT in 12 months, per established ACR guidelines. Electronically Signed: Lemuel Colón MD at 12:13 EDT Tel , Service support ,
== END ==
PROVIDERS: PCP Internal Medicine; Referring Provider Nurse Practitioner Acute Care; Visit Provider Nurse Practitioner Acute Care
DX: F17.210 Nicotine dependence, cigarettes, uncomplicated (principal); Z12.2 Encounter for screening for malignant neoplasm of respiratory organs
CPT/HCPCS: 71271

== ENCOUNTER → 2021-01-13 10:20 | Outpatient (CLI) | payer MEDICAID, SELFPAY ==
[2021-01-13 09:48] VITALS: BMI 20.7
[2021-01-13 12:28] LABS: Absolute Lymphocyte Count 1.72 X10^3/uL (0.83-4.51); Absolute Neutrophil Count 3.4 X10^3/uL (2.0-7.7); Basophil# 0.07 X10^3/uL; Basophil% 1.1 % (0-1); Eosinophils% 3.3 % (0-5); Hematocrit 46.1 % (40-54); Lymphocyte # 1.72 X10^3/ul (0.83-4.51); Lymphocyte % 28.2 % (19-41); Mean Corp Hgb Conc 32.5 g/dL (32-36); Mean Corpuscular Hgb 29.8 pg (27.0-32.0); Mean Corpuscular Volume 91.7 fL (80-94); Mean Platelet Vol. 9.9 fl (6.2-12.0); Monocyte# 0.67 X10^3/uL; NRBC Flagged by Analyzer 0 % (0-5); Neutrophil % 55.9 % (47-70); Platelet Count 290 K/mm3 (150-450); RBC Distribution Width CV 13.2 % (11.6-14.6); Red Blood Count 5.03 M/mm3 (4.6-6.2); White Blood Count 6.1 K/mm3 (4.4-11.0)
[2021-01-13 13:06] LABS: ALB/GLOB Ratio 1.1 RATIO (0.9-2.4); AST(SGOT) 15 U/L (15-37); Alanine Aminotransfer ALT/SGPT 28 U/L (16-61); Albumin, Serum 3.9 g/dL (3.2-5.0); Alkaline Phosphatase 97 U/L (45-117); Anion Gap 5 (5-15); BUN 19 mg/dL (7-18); BUN/Creat Ratio 11.3 RATIO (10-20); Calcium,Total 8.8 mg/dL (8.5-10.1); Chloride 105 mmol/L (98-107); Cholesterol 79 mg/dL (200); Creatinine, Serum 1.68 mg/dL (0.70-1.30); EST Glomerular Filtration Rate 44 mL/min (>60); Est Glom Filt Rate - Afr Amer 53 mL/min (>60); Globulin 3.4 g/dL (2.2-4.2); Glucose 113 mg/dL (74-106); High Density Lipoprotein 47 mg/dL; Potassium 4.2 mmol/L (3.5-5.1); Protein, Total 7.3 g/dL (6.4-8.2); Sodium Level 139 mmol/L (136-145); Triglycerides 35 mg/dL; Very Low Density Lipoprotein 7 mg/dL (5-40)
== END ==
PROVIDERS: PCP Internal Medicine; Visit Provider Internal Medicine
DX: I10 Essential (primary) hypertension (principal)
CPT/HCPCS: 36415; 80053; 80061; 85025

== ENCOUNTER → 2021-04-18 12:55 | Outpatient (CLI) | payer MEDICAID, SELFPAY ==
[2021-02-26 09:07] VITALS: BMI 20.4
--- NOTE | 2021-04-18 12:58 | ECHOD_ITS ---
Reason For Study: DYSPNEA/SOB Procedure This was a 2D Doppler, Color Flow transthoracic echocardiogram. Exam performed in department. Left Ventricle Normal LV size. Left ventricular systolic function is normal. The estimated ejection fraction is 55 %. Stage 2 diastolic dysfunction. No regional wall motion abnormalities noted. Right Ventricle Normal RV size. Normal systolic function. Atria Normal left atrium. Normal right atrium. Mitral Valve Normal mitral valve. Tricuspid Valve Normal tricuspid valve. Mild (1+) tricuspid valve insufficiency. Pulmonary artery systolic pressure is 44 mmHg. Aortic Valve Normal aortic valve. Trisinus/trileaflet aortic valve. Pulmonic Valve Normal pulmonic valve. Great Vessels Normal aortic root. The pulmonary artery is normal size. Normal inferior vena cava. Pericardium/Pleural No pericardial effusion. MMode/2D Measurements & Calculations LVIDd: 4.1 cm IVSd: 0.60 cm Ao root diam: 3.5 cm LVIDs: 2.7 cm LVPWd: 0.70 cm RVDd: 3.0 cm FS: 32.7 % LAV(MOD-bp): 30.2 ml LA A4 area: 11.5 cm2 LA dimension(2D): 2.5 cm LAV(MOD-bp) Indexed: 17.7 ml/m2 LAV(MOD-sp2): 30.9 ml LAV(MOD-sp4): 26.0 ml RA A4 area: 8.7 cm2 Time Measurements MV dec time: 0.20 sec Doppler Measurements & Calculations MV E max dillon: 68.3 cm/sec Lat Peak E' Dillon: 10.3 cm/sec Med Peak E' Dillon: 9.0 cm/sec MV A max dillon: 57.5 cm/sec E/E' lat: 6.6 E/E' med: 7.6 MV E/A: 1.2 Ao V2 max: 93.7 cm/sec LV V1 max: 85.1 cm/sec PA V2 max: 78.0 cm/sec Ao max P.5 mmHg LV V1 max P.9 mmHg TR max dillon: 309.2 cm/sec TR max P.3 mmHg ECHO/Echo Complete Interpretation Summary Normal LV size. Left ventricular systolic function is normal. The estimated ejection fraction is 55 %. Stage 2 diastolic dysfunction. Pulmonary artery systolic pressure is 44 mmHg. Ordering Physician: Mary Grace Hernandez Referring Physician: Dimitris Tubbs Performed By: Lynda Cameron RDCS, RVT
== END ==
PROVIDERS: PCP Internal Medicine; Referring Provider Physician Assistant Medical; Visit Provider Physician Assistant Medical
DX: R06.00 Dyspnea, unspecified (principal)
CPT/HCPCS: 93306

== ENCOUNTER → 2021-06-09 11:58 | Outpatient (CLI) | payer MEDICAID, SELFPAY ==
[2021-06-09 15:27] LABS: Anion Gap 5 (5-15); BUN 20 mg/dL (7-18); BUN/Creat Ratio 13.2 RATIO (10-20); Calcium,Total 9.2 mg/dL (8.5-10.1); Chloride 104 mmol/L (98-107); Creatinine, Serum 1.51 mg/dL (0.70-1.30); EST Glomerular Filtration Rate 50 mL/min (>60); Est Glom Filt Rate - Afr Amer 60 mL/min (>60); Glucose 126 mg/dL (74-106); Potassium 4.3 mmol/L (3.5-5.1); Sodium Level 138 mmol/L (136-145)
== END ==
PROVIDERS: PCP Internal Medicine; Referring Provider Internal Medicine; Visit Provider Internal Medicine
DX: I10 Essential (primary) hypertension (principal)
CPT/HCPCS: 36415; 80048

== ENCOUNTER → 2021-11-28 | Outpatient (CLI) | payer MEDICAID, SELFPAY ==
[2021-11-28 16:49] LABS: Absolute Lymphocyte Count 1.51 X10^3/uL (0.83-4.51); Basophil# 0.07 X10^3/uL; Basophil% 1.1 % (0-1); Eosinophil# 0.12 X10^3/uL; Eosinophils% 1.9 % (0-5); Hemoglobin 14.9 g/dL (13.0-16.5); Lymphocyte # 1.51 X10^3/ul (0.83-4.51); Lymphocyte % 23.7 % (19-41); Mean Corp Hgb Conc 32.4 g/dL (32-36); Mean Corpuscular Hgb 29.9 pg (27.0-32.0); Mean Corpuscular Volume 92.2 fL (80-94); Mean Platelet Vol. 9.6 fl (6.2-12.0); Monocyte# 0.68 X10^3/uL; Monocyte% 10.7 % (0-10); NRBC Flagged by Analyzer 0 % (0-5); Neutrophil # 3.97 X10^3/uL (2.7-7.7); Neutrophil % 62.1 % (47-70); Platelet Count 299 K/mm3 (150-450); RBC Distribution Width CV 12.9 % (11.6-14.6); RBC Distribution Width SD 43.6 fl (35.1-43.9); Red Blood Count 4.99 M/mm3 (4.6-6.2); White Blood Count 6.4 K/mm3 (4.4-11.0)
[2021-11-28 17:15] LABS: Anion Gap 3 (5-15); BUN 16 mg/dL (7-18); BUN/Creat Ratio 10.5 RATIO (10-20); Calcium,Total 8.6 mg/dL (8.5-10.1); Chloride 104 mmol/L (98-107); Creatinine, Serum 1.52 mg/dL (0.70-1.30); EST Glomerular Filtration Rate 49 mL/min (>60); Est Glom Filt Rate - Afr Amer 60 mL/min (>60); Glucose 121 mg/dL (74-106); Potassium 4.7 mmol/L (3.5-5.1); Sodium Level 138 mmol/L (136-145)
== END | disposition home or self-care (01) ==
LOC: BIMLAB 15:05
PROVIDERS: PCP Internal Medicine; Referring Provider Internal Medicine; Visit Provider Internal Medicine
DX: I10 Essential (primary) hypertension (principal)
CPT/HCPCS: 36415; 80048; 85025

== ENCOUNTER → 2022-06-05 | Outpatient (CLI) | payer MEDICARE, MEDICAID, SELFPAY ==
--- NOTE | 2022-06-05 16:44 | CT_ITS ---
EXAM: CT CHEST, LUNG CANCER SCREENING WITHOUT INTRAVENOUS CONTRAST CLINICAL INDICATION: h/o Tobacco Dependency TECHNIQUE: Helically acquired images were obtained of the chest without intravenous contrast using low dose (LDCT) lung cancer screening protocol. This CT exam was performed using one or more of the following dose reduction techniques: automated exposure control, adjustment of the mA and/or kV according to patient size, and/or use of iterative reconstruction technique. This report was created using [employer] report generation technology. COMPARISON: 10/31/2020. FINDINGS: LUNGS AND PLEURAL SPACES: There are emphysematous changes within both lungs. No mass. No pleural effusion or thickening. No pneumothorax. HEART: Unremarkable. Heart size is normal. No pericardial effusion. No significant coronary artery calcifications. MEDIASTINUM: Unremarkable. No mediastinal or hilar adenopathy. Esophagus is unremarkable. No hiatal hernia. THYROID: Unremarkable. No thyroid lesions. BONES/JOINTS: Unremarkable. No suspicious lytic or blastic abnormality. VASCULATURE: Unremarkable. Thoracic aorta is non-dilated. LYMPH NODES: Unremarkable. No enlarged lymph nodes. CT/Low Dose CT Lung Screening IMPRESSION: No change compared to the chest reference examination. There are emphysematous changes again seen within both lungs. There are no pulmonary nodules. Lung-RADS score: 1 - Recommend continued annual screening with low-dose CT (LDCT) in 12 months. Electronically Signed: Jassi Velasco MD at 23:56 EST ,
== END | disposition home or self-care (01) ==
LOC: CT 16:43
PROVIDERS: PCP Internal Medicine; Referring Provider Internal Medicine Critical Care Medicine; Visit Provider Internal Medicine Critical Care Medicine
DX: Z87.891 Personal history of nicotine dependence (principal)
CPT/HCPCS: 71271

== ENCOUNTER 2022-07-27 16:28 | Emergency (ER) | payer MEDICARE, MEDICAID, SELFPAY ==
[2022-07-27 16:29] VITALS: BP 125/99; PULSE 91; RESP 16; TEMP 36.8; O2SAT 94; BMI 21.1
--- NOTE | 2022-07-27 17:48 | EKG12_ITS ---
Test Reason : SOB/CP Blood Pressure : / mmHG Vent. Rate : 092 BPM Atrial Rate : 092 BPM P-R Int : 116 ms QRS Dur : 086 ms QT Int : 382 ms P-R-T Axes : 072 -84 082 degrees QTc Int : 472 ms Normal sinus rhythm Left axis deviation Abnormal ECG Confirmed by NELSON CHOWDARY, BRITTANY ([id number]), editor house organ JEANNINE GONZALEZ ([id number]) on 07/29/2022 9:26:14 AM Referred By: CAROLYN/CONSTANZA Confirmed By:BRITTANY DAMON MD
[2022-07-27] MEDS: 0.9% Normal Saline 1,000 ML 1000 ML IV (18:02)
[2022-07-27 18:04] VITALS: BP 106/75; BP 113/75; BP 93/71; PULSE 62; PULSE 66; PULSE 92
[2022-07-27 18:06] LABS: Absolute Neutrophil Count 2.3 X10^3/uL (2.0-7.7); Basophil# 0.01 X10^3/uL; Basophil% 0.3 % (0-1); Eosinophil# 0.02 X10^3/uL; Eosinophils% 0.5 % (0-5); Hematocrit 50.3 % (40-54); Hemoglobin 16.8 g/dL (13.0-16.5); Lymphocyte % 24.5 % (19-41); Mean Corp Hgb Conc 33.4 g/dL (32-36); Mean Corpuscular Hgb 29.5 pg (27.0-32.0); Mean Corpuscular Volume 88.2 fL (80-94); Mean Platelet Vol. 9.2 fl (6.2-12.0); Monocyte# 0.43 X10^3/uL; Monocyte% 11.7 % (0-10); NRBC Flagged by Analyzer 0 % (0-5); Neutrophil % 62.5 % (47-70); Platelet Count 252 K/mm3 (150-450); RBC Distribution Width CV 12.4 % (11.6-14.6); RBC Distribution Width SD 40.3 fl (35.1-43.9); White Blood Count 3.7 K/mm3 (4.4-11.0)
--- NOTE | 2022-07-27 18:09 | EDS_ITS ---
HPI History of Present Illness Chief Complaint: General Illness Informant: patient Narrative Narrative: Patient is a 66-year-old male presenting with generalized malaise. Patient is a history of COPD stage IV, obstructive sleep apnea on CPAP, tobacco use, hyperte nsion, hyperlipidemia, coronary artery disease status post stent placement 2015, type 2 diabetes mellitus and secondary pulmonary arterial hypertension. He has had symptoms for about a week. He notes at night has been waking up gasping for air despite wearing his CPAP. He has had decreased appetite decreased sleep. Has had myalgias and runny nose. He is not had a fever. He has had increasing cough with yellow sputum production. Denies any GI symptoms. Notes he has had some decreased urination but attributes that to not eating/drinking much. 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) Pure hypercholesterolemia Secondary pulmonary arterial hypertension Smoking ST elevation myocardial infarction involving left anterior descending coronary artery (2015) Stage 4 very severe COPD by GOLD classification Tinnitus Type 2 diabetes mellitus Home Medications albuterol sulfate 2.5 mg/3 mL (0.083 %) solution for nebulization 2.5 mg (3 mL) inhalation Q4H PRN PRN wheezing/shortness of breath #120 vials 03/26/20 [Rx Last Taken Unknown] nitroglycerin 0.4 mg sublingual tablet 0.4 mg sublingual Q5M PRN Chest Pain #25 tabs 02/26/21 [Rx Last Taken Unknown] albuterol sulfate 90 mcg/actuation aerosol inhaler 2 puff inhalation Q4H PRN Sob &/Or Wheezing #18 grams 04/29/21 [Rx Last Taken Unknown] mirtazapine 15 mg tablet 15 mg PO QHS #90 tabs 06/09/21 [Rx Last Taken Unknown] atorvastatin 80 mg tablet 80 mg PO QHS CHOLESTEROL #90 tabs 08/04/21 [Rx Last Taken Unknown] amlodipine 5 mg tablet 5 mg PO DAILY BP #90 tabs 09/09/21 [Rx Last Taken Unknown] aspirin 81 mg chewable tablet 81 mg PO DAILY@0800 BLOOD THINNER #90 tabs 11/11/21 [Rx Last Taken Unknown] lisinopril 20 mg-hydrochlorothiazide 25 mg tablet 1 tab PO DAILY BP #90 tabs 11/28/21 [Rx Last Taken Unknown] nicotine 14 mg/24 hr daily transdermal patch 1 patch transdermal DAILY #28 ea 11/28/21 [Rx Last Taken Unknown] clopidogrel 75 mg tablet 75 mg PO DAILY BLOOD THINNER #90 tabs 01/16/22 [Rx Last Taken Unknown] metoprolol succinate 50 mg tablet,extended release 24 hr 50 mg PO DAILY BP #90 tabs 03/05/22 [Rx Last Taken Unknown] fluticasone fur. 200 mcg-umeclid 62.5 mcg-vilant 25 mcg inhalat.powder (Trelegy Ellipta) 1 inh inhalation Q24H #60 ea 06/01/22 [Rx Last Taken Unknown] potassium chloride 20 mEq tablet,extended release 20 meq PO DAILY 06/01/22 [History Last Taken Unknown] prednisone 20 mg tablet 40 mg PO DAILY #8 tabs 07/27/22 [Rx Last Taken Unknown] Allergy/AdvReac Type Severity Reaction Status Date / Time ceftriaxone sodium AdvReac Severe Other Verified 07/27/22 16:32 [From [facility]] Family History Father Diabetes Mother Diabetes Surgical History History of coronary artery stent placement (12/22/15) History of incision and drainage History of left heart catheterization (03/15/17) History of nephrectomy, right (02/2019) Social History Smoking Status: Current every day smoker tobacco type: cigarettes Tobacco: How many years used: 30 how long ago did patient quit smokin10/24/2021 second hand exposure: Yes alcohol intake: never substance use type: marijuana caffeine: Yes Type: carbonated beverages Number of servings: 4 and coffee Number of servings: 1 what type of physical activity do you participate in: none frequency: daily seatbelt use: always do you feel safe at home: Yes ROS ROS ED Constitutional Constitutional ED: Denies chills or fever(s) Eyes Eyes: Denies change in vision ENT ENT ED: Reports rhinorrhea; Denies sore throat Cardiovascular Cardiovascular: Reports paroxysmal nocturnal dyspnea; Denies chest pain or palpitations Respiratory/Chest Respiratory/Chest: Reports cough, dyspnea and paroxysmal nocturnal dyspnea Gastrointestinal Gastrointestinal: Denies abdominal pain, diarrhea or vomiting Genitourinary Genitourinary ED: Reports other Details: Decreased urination ; Denies dysuria Musculoskeletal Musculoskeletal: Reports myalgias; Denies arthralgias Integumentary Denies rash Neurologic Neurologic: Reports weakness; Denies headache(s) Psychiatric Psychiatric: Denies anxiety or depression Hematologic/Lymphatic Hematologic/Lymphatic: Denies easy bleeding or easy bruising EXAM Physical Exam Const Vital Signs: 07/27/22 16:29 07/27/22 18:04 07/27/22 20:00 Temperature 98.2 F Temperature Source Temporal Pulse Rate 91 61 Pulse Rate [Lying] 62 Pulse Rate [Sitting (for 1 minute prior to obtaining)] 66 Pulse Rate [Standing (for 1 minute prior to obtaining)] 92 Respiratory Rate 16 18 Blood Pressure 125/99 H 106/75 Blood Pressure [Lying] 113/75 Blood Pressure [Sitting (for 1 minute prior to obtaining)] 106/75 Blood Pressure [Standing (for 1 minute prior to obtaining)] 93/71 Blood Pressure Mean 107 85 Blood Pressure Mean [Lying] 87 Blood Pressure Mean [Sitting (for 1 minute prior to obtaining)] 85 Blood Pressure Mean [Standing (for 1 minute prior to obtaining)] 78 Pulse Ox 94 96 Oxygen Delivery Method Room Air Room Air Positive well nourished and well developed Constitutional Narrative: thin General Appearance ED: well developed HEENT Reports TM's clear and dry mucous membranes Tympanic Membrane ED: Yes TM's clear Mouth ED: Yes dry mucous membranes Mouth: dry mucous membranes Eyes PERRL and EOMs intact bilaterally Neck no JVD Chest Wall inspection of chest normal and palpation of chest normal Resp normal respiratory effort Auscultation: diminished lung sounds bilateral lower Cardio regular rate, regular rhythm and no murmurs GI normal to inspection, nondistended, normoactive bowel sounds Extremity normal to inspection General Extremety ED: Negative for edema or tenderness General Extremity: Negative for edema Neuro oriented x3 Sensorium / Orientation: alert Motor Exam: general weakness Psych mental status grossly normal Skin no rashes or lesions noted MDM MDM MDM Narrative Medical decision making narrative: Is evaluated for generalized malaise for the past few days. Does have a pretty complex medical history including COPD and coronary artery disease. He has diminished breath sounds on exam however he is not wheezing. COVID and flu are negative however he does have a leukopenia as well as a mildly elevated hemoglobin of 16.8. I suspect he is dehydrated/hemoconcentrated. Patient is orthostatic positive. Is given a liter of IV fluids. I also suspect he has a viral illness that is causing his leukopenia. Creatinine is mildly elevated but near his baseline. Two-view chest x-ray inter by myself as well as radiology is hyperinflated with chronic changes but no acute process. Given the patient does not have increased oxygen demand, or increased cough I do not think he requires antibiotics for COPD exacerbation. Will be started on steroids. Is given first dose in the emergency room. Is given return precautions. Does not need any refills of his inhalers. On repeat evaluation patient is feeling much better and agreeable this plan of care. Is given return precautions. Lab Data Attestation: I reviewed the patient's lab results. Labs: Laboratory Results - last 24 hr 07/27/22 07/27/22 18:01 18:01 WBC 3.7 L RBC 5.70 Hgb 16.8 H Hct 50.3 MCV 88.2 MCH 29.5 MCHC 33.4 RDW Std Deviation 40.3 RDW Coeff of Jose Alfredo 12.4 Plt Count 252 MPV 9.2 Immature Gran % (Auto) 0.500 Neut % (Auto) 62.5 Lymph % (Auto) 24.5 [place] % (Auto) 11.7 H Eos % (Auto) 0.5 Baso % (Auto) 0.3 Absolute Neuts (auto) 2.3 Absolute Lymphs (auto) 0.90 Nucleated RBC % 0 Sodium 135 L Potassium 4.1 Chloride 98 Carbon Dioxide 30.0 Anion Gap 7 BUN 32 H Creatinine 1.66 H Estim Creat Clear Calc 38.94 Est GFR (MDRD) Af Amer 54 L Est GFR (MDRD) Non-Af 44 L BUN/Creatinine Ratio 19.3 Glucose 115 H Calcium 9.8 Total Bilirubin 1.30 H AST 25 ALT 32 Alkaline Phosphatase 88 Troponin I High Sens 10 Total Protein 8.4 H Albumin 4.1 Globulin 4.3 H Albumin/Globulin Ratio 1.0 Radiography Chest X-Ray - ED: 2 View, Read by ED Physician, Read by Radiologist, No Acute Disease and Chronic Changes Diagnostic Testing: Clinical Impression(s) from Imaging Studies Chest X-Ray 07/27/22 18:20 IMPRESSION: There are no acute findings. Electronically Signed: Giovanni Winn MD at 18:44 EST , Rhythm Strip Rhythm Strip: Sinus Rhythm Rate: 92 Ectopy: None EKG Initial EKG: Attestation: I personally reviewed and interpreted this EKG as follows: Interpretation: Sinus Rhythm Comments: Normal sinus rhythm rate of 92 bpm Normal axis Normal intervals Normal ST segments No change greater prior EKG on 08/25/2018 Prior EKG tracings: available for review Prior: Unchanged Discharge Plan Triage Chief Complaint: General Illness ED Provider: Pamella Neely Dx/Rx/DC Orders Clinical Impression: Dyspnea, Malaise and fatigue, Leukopenia, Orthostasis Instructions: Orthostatic Hypotension, ED Dyspnea Prescriptions: New prednisone 20 mg tablet 40 mg PO DAILY Qty: 8 0RF No Action albuterol sulfate 2.5 mg /3 mL (0.083 %) solution for nebulization 2.5 mg inhalation Q4H PRN PRN (Reason: wheezing/shortness of breath) Qty: 120 6RF nitroglycerin 0.4 mg tablet, sublingual 0.4 mg SUBLINGUAL Q5M PRN (Reason: Chest Pain) Qty: 25 3RF mirtazapine 15 mg tablet 15 mg PO QHS Qty: 90 1RF lisinopril-hydrochlorothiazide 20-25 mg tablet 1 tab PO DAILY Qty: 90 3RF nicotine 14 mg/24 hr patch 24 hour 1 patch transdermal DAILY Qty: 28 3RF Trelegy Ellipta 200-62.5-25 mcg blister with device 1 inh INHALATION Q24H Qty: 60 11RF potassium chloride 20 mEq tablet extended release 20 meq PO DAILY albuterol sulfate 90 mcg/actuation HFA aerosol inhaler 2 puff INHALATION Q4H PRN (Reason: Sob &/Or Wheezing) Qty: 18 3RF atorvastatin 80 mg tablet 80 mg PO QHS Qty: 90 3RF amlodipine 5 mg tablet 5 mg PO DAILY Qty: 90 3RF aspirin 81 mg tablet,chewable 81 mg PO DAILY@0800 Qty: 90 3RF clopidogrel 75 mg tablet 75 mg PO DAILY Qty: 90 3RF metoprolol succinate 50 mg tablet extended release 24 hr 50 mg PO DAILY Qty: 90 3RF Primary Care Provider: Dimitris Tubbs Referrals: Dimitris Tubbs MD [Primary Care Provider] - Activity Restrictions/Additional Instructions: Your work-up is largely normal however your blood pressure did drop when you stood up. I suspect you had a component of dehydration. Continue using your breathing treatments as home. We will put you on a course of steroids. I suspect you might have a viral syndrome that caused you to feel worse this week. Disposition Disposition: Home, Self Care Discharge Date/Time: 07/27/22 21:24
--- NOTE | 2022-07-27 18:20 | RAD_ITS ---
STUDY: X-RAY CHEST REASON FOR EXAM: Male, 66 years old. sob, cough TECHNIQUE: XR Chest 2 Views COMPARISON: 08/24/2018 FINDINGS: There is atherosclerotic calcification of the aortic arch with tortuosity. There are diffuse degenerative changes of the visualized thoracic spine. There is degenerative osteoarthritis of the bilateral shoulders. The lung lawsno are hyperexpanded. Stable right lower lobe scarring. Normal size heart. Normal mediastinum and nadia. Normal visualized pulmonary arteries. There is no demonstrated abnormality of the visualized soft tissue structures of the upper abdomen. RAD/Chest PA and Lateral IMPRESSION: There are no acute findings. Electronically Signed: Giovanni Winn MD at 18:44 EST ,
[2022-07-27 18:25] LABS: AST(SGOT) 25 U/L (15-37); Alanine Aminotransfer ALT/SGPT 32 U/L (16-61); Albumin, Serum 4.1 g/dL (3.2-5.0); Alkaline Phosphatase 88 U/L (45-117); Anion Gap 7 (5-15); BUN 32 mg/dL (7-18); BUN/Creat Ratio 19.3 RATIO (10-20); Calcium,Total 9.8 mg/dL (8.5-10.1); Chloride 98 mmol/L (98-107); Creatinine, Serum 1.66 mg/dL (0.70-1.30); EST Glomerular Filtration Rate 44 mL/min (>60); Est Glom Filt Rate - Afr Amer 54 mL/min (>60); Estimated Creatinine Clearance 38.94 ml/min; Globulin 4.3 g/dL (2.2-4.2); Glucose 115 mg/dL (74-106); Potassium 4.1 mmol/L (3.5-5.1); Protein, Total 8.4 g/dL (6.4-8.2); Sodium Level 135 mmol/L (136-145); Troponin-I HS 10 pg/mL (3.0-78.0)
[2022-07-27 20:00] VITALS: BP 106/75; PULSE 61; RESP 18; O2SAT 96
[2022-07-27 20:31] VITALS: O2SAT 96
[2022-07-27] MEDS: predniSONE 20 MG Tablet 40 MG PO (21:00)
== END 2022-07-27 21:24 | disposition home or self-care (01) ==
PROVIDERS: Emergency Provider Emergency Medicine; PCP Internal Medicine; Visit Provider Emergency Medicine
DX: R06.00 Dyspnea, unspecified (principal); R53.83 Other fatigue; R53.81 Other malaise; D72.819 Decreased white blood cell count, unspecified; F12.90 Cannabis use, unspecified, uncomplicated; I25.10 Atherosclerotic heart disease of native coronary artery without angina pectoris; F17.210 Nicotine dependence, cigarettes, uncomplicated; I25.2 Old myocardial infarction; G47.33 Obstructive sleep apnea (adult) (pediatric); Z95.5 Presence of coronary angioplasty implant and graft
CPT/HCPCS: 71046; 80053; 84484; 85025; 87428; 93005; 96360; 96361; 99284; A4216

== ENCOUNTER → 2023-02-10 | Outpatient (CLI) | payer MEDICARE, MEDICAID, SELFPAY ==
[2023-02-10 12:24] LABS: Absolute Lymphocyte Count 1.06 X10^3/uL (0.83-4.51); Absolute Neutrophil Count 4.2 X10^3/uL (2.0-7.7); Basophil# 0.05 X10^3/uL; Basophil% 0.8 % (0-1); Eosinophils% 3.3 % (0-5); Hematocrit 42.2 % (40-54); Hemoglobin 13.4 g/dL (13.0-16.5); Lymphocyte # 1.06 X10^3/ul (0.83-4.51); Lymphocyte % 17.2 % (19-41); Mean Corp Hgb Conc 31.8 g/dL (32-36); Mean Corpuscular Hgb 29.8 pg (27.0-32.0); Mean Corpuscular Volume 93.8 fL (80-94); Mean Platelet Vol. 9.8 fl (6.2-12.0); Monocyte# 0.58 X10^3/uL; Monocyte% 9.4 % (0-10); NRBC Flagged by Analyzer 0 % (0-5); Neutrophil # 4.23 X10^3/uL (2.7-7.7); Neutrophil % 68.8 % (47-70); Platelet Count 268 K/mm3 (150-450); RBC Distribution Width SD 44.7 fl (35.1-43.9); White Blood Count 6.2 K/mm3 (4.4-11.0)
[2023-02-10 13:07] LABS: ALB/GLOB Ratio 1.1 RATIO (0.9-2.4); AST(SGOT) 14 U/L (15-37); Alanine Aminotransfer ALT/SGPT 22 U/L (16-61); Albumin, Serum 3.6 g/dL (3.2-5.0); Alkaline Phosphatase 82 U/L (45-117); Anion Gap 2 (5-15); BUN 23 mg/dL (7-18); BUN/Creat Ratio 14.1 RATIO (10-20); Calcium,Total 9.1 mg/dL (8.5-10.1); Chloride 103 mmol/L (98-107); Cholesterol 83 mg/dL (200); Creatinine, Serum 1.63 mg/dL (0.70-1.30); EST Glomerular Filtration Rate 45 mL/min (>60); Est Glom Filt Rate - Afr Amer 55 mL/min (>60); Globulin 3.2 g/dL (2.2-4.2); Glucose 112 mg/dL (74-106); High Density Lipoprotein 52 mg/dL; Potassium 4.1 mmol/L (3.5-5.1); Protein, Total 6.8 g/dL (6.4-8.2); Sodium Level 139 mmol/L (136-145); Triglycerides 45 mg/dL; Very Low Density Lipoprotein 9 mg/dL (5-40)
== END | disposition home or self-care (01) ==
LOC: BIMLAB 10:54
PROVIDERS: PCP Internal Medicine; Visit Provider Internal Medicine
DX: I25.10 Atherosclerotic heart disease of native coronary artery without angina pectoris (principal); I10 Essential (primary) hypertension
CPT/HCPCS: 36415; 80053; 80061; 85025

== ENCOUNTER → 2023-07-08 | Outpatient (CLI) | payer MEDICARE, MEDICAID, SELFPAY ==
--- NOTE | 2023-07-08 13:16 | US_ITS ---
EXAM: US SOFT TISSUES HEAD AND NECK, THYROID CLINICAL INDICATION: NODULE ON CT TECHNIQUE: Kaur scale and color doppler imaging was performed of the thyroid gland. COMPARISON: No relevant prior studies available. FINDINGS: LEFT THYROID LOBE: Left thyroid lobe measures 4.3 x 1.9 x 2.5 cm. Homogeneous echotexture with normal vascularity. No thyroid nodules are present. RIGHT THYROID LOBE: Second dominant 16 mm right thyroid nodule nodule is predominantly cystic in nature with 6 mm solid nodular component. The lesion is somewhat lobular in contour taller than wide and without microcalcification. TI-RADS points: 0. TI-RADS category: TR1. This nodule is benign and no FNA or follow-up is necessary. Right thyroid lobe measures 4.6 x 2.6 x 2.6 cm. There are several simple and complex cystic nodules within the right thyroid lobe. 2.2 cm nodule has a spongiform consistency, well-defined, wider than tall and without microcalcification. TI-RADS points: 0. TI-RADS category: TR1. This nodule is benign and no FNA or follow-up is necessary. ISTHMUS: Normal. No thyroid nodules are present. US/Thyroid IMPRESSION: Benign cystic nodules of the right thyroid lobe. Normal left thyroid lobe. Electronically Signed: Jameson Irvin MD at 14:12 EST ,
== END | disposition home or self-care (01) ==
LOC: US 13:13
PROVIDERS: PCP Internal Medicine
DX: Z01.810 Encounter for preprocedural cardiovascular examination (principal); J44.9 Chronic obstructive pulmonary disease, unspecified; Z01.818 Encounter for other preprocedural examination; R93.89 Abnormal findings on diagnostic imaging of other specified body structures
CPT/HCPCS: 36415; 76536; 80048; 85027

== ENCOUNTER → 2023-07-08 | Outpatient (CLI) | payer MEDICARE, MEDICAID, SELFPAY ==
[2023-07-08 14:24] LABS: Hematocrit 38.3 % (40-54); Mean Corp Hgb Conc 31.3 g/dL (32-36); Mean Corpuscular Hgb 30.1 pg (27.0-32.0); Mean Platelet Vol. 9.9 fl (6.2-12.0); Platelet Count 234 K/mm3 (150-450); RBC Distribution Width CV 12.2 % (11.6-14.6); RBC Distribution Width SD 42.9 fl (35.1-43.9); Red Blood Count 3.99 M/mm3 (4.6-6.2)
[2023-07-08 14:46] LABS: Anion Gap -1 (5-15); BUN 19 mg/dL (7-18); Calcium,Total 9.2 mg/dL (8.5-10.1); Chloride 98 mmol/L (98-107); Creatinine, Serum 1.19 mg/dL (0.70-1.30); EST Glomerular Filtration Rate 65 mL/min (>60); Est Glom Filt Rate - Afr Amer 79 mL/min (>60); Glucose 142 mg/dL (74-106); Potassium 3.7 mmol/L (3.5-5.1); Sodium Level 138 mmol/L (136-145)
== END | disposition home or self-care (01) ==
LOC: LAB 13:55
PROVIDERS: PCP Internal Medicine
DX: Z00.00 Encounter for general adult medical examination without abnormal findings (principal)
CPT/HCPCS: 36415; 80048; 85027

== ENCOUNTER → 2023-12-10 | Outpatient (CLI) | payer MEDICARE, MEDICAID, SELFPAY ==
[2023-12-10 12:31] LABS: Anion Gap 5 (5-15); BUN 21 mg/dL (7-18); BUN/Creat Ratio 16.3 RATIO (10-20); Calcium,Total 9.8 mg/dL (8.5-10.1); Chloride 90 mmol/L (98-107); Creatinine, Serum 1.29 mg/dL (0.70-1.30); EST Glomerular Filtration Rate 59 mL/min (>60); Est Glom Filt Rate - Afr Amer 72 mL/min (>60); Glucose 122 mg/dL (74-106); Potassium 3.6 mmol/L (3.5-5.1); Sodium Level 140 mmol/L (136-145)
[2023-12-10 12:52] LABS: Hemoglobin A1c 5.5 % (3.8-5.6)
== END | disposition home or self-care (01) ==
LOC: BIMLAB 10:53
PROVIDERS: PCP Internal Medicine; Referring Provider Nurse Practitioner; Visit Provider Nurse Practitioner
DX: R53.1 Weakness (principal); E11.69 Type 2 diabetes mellitus with other specified complication
CPT/HCPCS: 36415; 80048; 83036